=== PATIENT | male | born 1970 | race Caucasian/White ===

== ENCOUNTER 2021-05-16 10:56 | Outpatient (REF) | payer OTHER, SELFPAY ==
[2021-05-16 13:08] LABS: Hematocrit 44.2 % (42-52); Hemoglobin 14.7 g/dl (14.0-18.0); Mean Corpuscular HGB Conc 33.3 g/dl (31.0-36.0); Mean Corpuscular Hemoglobin 29.1 pg (27.0-33.0); Mean Corpuscular Volume 87.5 fL (80-98); Mean Platelet Volume 11.2 fL (9.4-12.4); Platelet Count 227 X10*3/uL (160-400); Red Blood Count 5.05 X10*6/uL (4.60-5.80); Red Cell Distribution Width 13.4 % (11.0-16.0); White Blood Count 9.8 X10*3/uL (4.8-10.8)
[2021-05-16 13:34] LABS: Alanine Aminotransferase 27 U/L (0-40); Albumin Level 4.2 g/dL (3.5-5.0); Alkaline Phosphatase 49 U/L (39-117); Anion Gap 11 (12-20); Aspartate Amino Transferase 20 U/L (5-37); Bilirubin Total 0.6 mg/dL (0.0-1.0); Blood Urea Nitrogen 17 mg/dL (9-16); Calcium 9.4 mg/dL (8.4-10.2); Carbon Dioxide 27 mmol/L (22-29); Chloride 105 mmol/L (96-108); Cholesterol 136 mg/dL; Estimated Glomerular Filt Rate 55; Glucose Fasting 139 mg/dL (60-99); HDL Cholesterol 36 mg/dL; LDL Cholesterol Calculated 62 mg/dl; Potassium 4.3 mmol/L (3.3-5.1); Sodium 139 mmol/L (135-145); Total Protein 7.2 g/dL (6.5-8.0); Triglycerides 191 mg/dL
[2021-05-16 13:59] LABS: Prostate Specific Antigen 0.73 ng/mL (<0.05-4.0)
== END 2021-05-16 10:57 | disposition home or self-care (01) ==
LOC: HO.MANLDS 10:56
PROVIDERS: PCP Internal Medicine; Visit Provider Internal Medicine
DX: Z12.5 Encounter for screening for malignant neoplasm of prostate (principal); I10 Essential (primary) hypertension
CPT/HCPCS: 36415; 80053; 80061; 84153; 85027

== ENCOUNTER 2021-08-04 10:14 | Outpatient (REF) | payer OTHER, SELFPAY ==
[2021-08-04 14:30] LABS: Estimated Average Glucose 134 mg/dL; Hemoglobin A1c % 6.3 %
[2021-08-04 14:34] LABS: Cholesterol 137 mg/dL; HDL Cholesterol 36 mg/dL; LDL Cholesterol Calculated 64 mg/dl; Triglycerides 185 mg/dL
== END 2021-08-04 10:15 | disposition home or self-care (01) ==
LOC: HO.MANLDS 10:14
PROVIDERS: PCP Internal Medicine; Visit Provider Internal Medicine
DX: E78.00 Pure hypercholesterolemia, unspecified (principal); R73.9 Hyperglycemia, unspecified
CPT/HCPCS: 36415; 80061; 83036

== ENCOUNTER 2021-12-25 11:22 | Inpatient (IN) | payer OTHER, SELFPAY ==
[2021-12-25] VITALS (7 sets, daily range): BP systolic 142–170; BP diastolic 75–103; PULSE 76–96; RESP 13–20; TEMP 36.6–37.2; O2SAT 95–98; BMI 39.5; BMI 43.7; BMI 43.4
--- NOTE | ~2021-12-25 | XR_ITS ---
EXAMINATION: XR CHEST CLINICAL INFORMATION: Chest pain COMPARISON: None TECHNIQUE: AP portable view of the chest was obtained. FINDINGS: No significant abnormality is noted involving the heart, lungs, mediastinum, bony thorax or soft tissues. Unipolar pacemaker in place. XR/XR chest 1V IMPRESSION: No acute disease.
--- NOTE | 2021-12-25 11:33 | ECG_ITS ---
Test Reason : chest pain Blood Pressure : / mmHG Vent. Rate : 081 BPM Atrial Rate : 081 BPM P-R Int : 188 ms QRS Dur : 086 ms QT Int : 362 ms P-R-T Axes : 012 030 006 degrees QTc Int : 420 ms Normal sinus rhythm Normal ECG No previous ECGs available Referred By: Generic ED Physician Electronically Signed By:SILVIA YOUNG MD
--- NOTE | 2021-12-25 12:03 | ED_ITS ---
HPI - Chest Pain General Chief Complaint: Chest Pain Stated Complaint: chest pain Time Seen by Provider: 12/25/21 12:03 Source: patient Mode of arrival: ambulatory Limitations: no limitations History of Present Illness HPI narrative: If Related Data Home Medications Medication Instructions Recorded Confirmed aspirin 81 mg tablet,delayed 1 tab PO DAILY 12/25/21 release carvedilol 6.25 mg tablet 1 tab PO BID 12/25/21 rosuvastatin 5 mg tablet 1 tab PO DAILY 12/25/21 Allergies Allergy/AdvReac Type Severity Reaction Status Date / Time No Known Allergies Allergy Verified 12/25/21 11:32 [facility] Past Medical History Medical History (Updated 12/25/21 @ 13:16 by Aldo Abel DO) Cardiac defibrillator in place Obesity Social History Social History Alcohol intake: current Alcohol intake frequency: holidays/special occasions only Smoked in Last 30 Days: No Use of substances other than those prescribed or required for medical reasons: No Advance Directives: No Advance Directives Information Provided: Yes Physical Exam Vital Signs: Vital Signs: Last Vital Signs Temp 98 F 12/25/21 11:24 Pulse 87 12/25/21 12:10 Resp 13 12/25/21 12:10 BP 170/103 H 12/25/21 12:10 Pulse Ox 96 12/25/21 12:10 BMI result Body Mass Index 39.5 MDM - Chest Pain MDM Narrative Medical decision making narrative: 51-year-old lower chest pain does have family history of heart disease in his father when father was in his 60s patient did have defibrillator placed after uneventful as a work with [employer] under reason for it patient is asymptomatic this time with STEMI chest pain was last night denies any falls or injuries since our unlikely ACS and affect he has no chest pain now will get troponins x- ray and labs as well EKG on arrival. 1313 patient that they tried to talk to Dr. Chaves with me the patient's only his feet for ACS also the patient heparin for now to medicine I consulted Medicine. 1334 I spoke with hospitalist will admit the patient to medicine service. Lab Data Result diagrams: 12/25/21 12:09 12/25/21 12:09 Labs: Lab Results 12/25/21 12/25/21 12/25/21 Range/Units 12:09 12:09 12:09 WBC 12.1 H (4.8-10.8) X10*3/uL RBC 5.17 (4.60-5.80) X10*6/uL Hgb 15.5 (14.0-18.0) g/dl Hct 45.4 (42.0-52.0) % MCV 87.8 (80.0-98.0) fL MCH 30.0 (27.0-33.0) pg MCHC 34.1 (31.0-36.0) g/dl RDW 13.3 (11.0-16.0) % Plt Count 218 (160-400) X10*3/uL MPV 10.9 (9.4-12.4) fL Immature Gran % (Auto) 0.5 H (0.0-0.4) % Neut % (Auto) 76.6 H (45-73) % Lymph % (Auto) 13.3 L (20-40) % [place] % (Auto) 7.8 (2-11) % Eos % (Auto) 1.5 (0-4) % Baso % (Auto) 0.3 (0-2) % Lymph # (Auto) 1.6 (1.2-4.9) X10*3/uL [place] # (Auto) 0.9 (0.1-1.2) X10*3/uL Eos # (Auto) 0.2 (0.0-0.4) X10*3/uL Baso # (Auto) 0.0 (0.0-0.2) X10*3/uL Abs Immat Gran (auto) 0.06 H (0.00-0.03) X10*3/uL Absolute Neuts (auto) 9.3 H (2.0-8.3) x10*3/uL Absolute Nucleated RBC 0.000 (0.0-0.012) X10*3/uL Nucleated RBC % (auto) 0.0 (0.0-0.2) /100WBC Sodium 137 (135-145) mmol/L Potassium 4.7 (3.3-5.1) mmol/L Chloride 104 (96-108) mmol/L Carbon Dioxide 24 (22-29) mmol/L Anion Gap 14 (12-20) BUN 15 (9-16) mg/dL Creatinine 1.22 (0.5-1.4) mg/dL Estim Creat Clear Calc 105.3 Estimated GFR > 60 Random Glucose 113 (60-115) mg/dL Calcium 9.2 (8.4-10.2) mg/dL Troponin I High Sens 36.8 H (<3.5-35.0) ng/L ECG Data ECG #1: Attestation: I personally reviewed and interpreted this ECG as follows: ECG interpretation date: 12/25/21 ECG interpretation time: 12:05 Prior ECG tracings: not available for review Interpretation: Rate 81 normal sinus rhythm normal intervals no signs of ischemia Scores Heart Score History: -0- slightly suspicious ECG: -0- normal Age: -1- >45 - <65 Risk factory: -1- 1 or 2 risk factors Troponin: -0- < or = normal limit Score: 2 Risk: 1.7% Critical Care Time Critical Care Time Critical Care Time: Yes Total Critical Care Time: 35 Attestation: 51-year-old male with history of a defibrillator after an episode at work here with positive troponin and chest pain I did consult with cardiology started the patient heparin drip and admitted to Medicine. Discharge Plan Discharge Clinical Impression: Chest pain, Acute non-ST elevation myocardial infarction (NSTEMI), Elevated troponin Patient Disposition: Admitted As Inpatient
[2021-12-25 12:18] LABS: MANUAL DIFF FLAG NO
[2021-12-25 12:21] LABS: Basophils Percent Auto 0.3 % (0-2); Eosinophils Absolute Auto 0.2 X10*3/uL (0.0-0.4); Eosinophils Percent Auto 1.5 % (0-4); Hematocrit 45.4 % (42.0-52.0); Hemoglobin 15.5 g/dl (14.0-18.0); Imm Gran Abs Auto 0.06 X10*3/uL (0.00-0.03); Imm Gran Pct Auto 0.5 % (0.0-0.4); Lymphocytes Absolute Auto 1.6 X10*3/uL (1.2-4.9); Lymphocytes Percent Auto 13.3 % (20-40); Mean Corpuscular HGB Conc 34.1 g/dl (31.0-36.0); Mean Corpuscular Volume 87.8 fL (80.0-98.0); Mean Platelet Volume 10.9 fL (9.4-12.4); Monocytes Absolute Auto 0.9 X10*3/uL (0.1-1.2); Monocytes Percent Auto 7.8 % (2-11); Neutrophils Absolute Auto 9.3 x10*3/uL (2.0-8.3); Neutrophils Percent Auto 76.6 % (45-73); Platelet Count 218 X10*3/uL (160-400); Red Blood Count 5.17 X10*6/uL (4.60-5.80); Red Cell Distribution Width 13.3 % (11.0-16.0); White Blood Count 12.1 X10*3/uL (4.8-10.8)
[2021-12-25 12:38] LABS: Anion Gap 14 (12-20); Blood Urea Nitrogen 15 mg/dL (9-16); Calcium 9.2 mg/dL (8.4-10.2); Carbon Dioxide 24 mmol/L (22-29); Chloride 104 mmol/L (96-108); Creatinine Clr Calc Pharmacy 105.3; Estimated Glomerular Filt Rate > 60; Glucose Random 113 mg/dL (60-115); Potassium 4.7 mmol/L (3.3-5.1); Sodium 137 mmol/L (135-145)
--- NOTE | 2021-12-25 12:40 | PC.NURSE ---
pt not given asa as he took 81 mg this am, provider to reorder dose needed
[2021-12-25 12:42] LABS: Troponin-I High Sensitivity 36.8 ng/L (<3.5-35.0)
[2021-12-25] MEDS: Aspirin 81 MG TAB.CHEW 243 MG PO (12:44)
--- NOTE | 2021-12-25 12:45 | PC.NURSE ---
pt a&ox3, vss, 20G IV placed right AC, medicated per provider order w adjusted asprin dose. no new orders at this time.
[2021-12-25] MEDS: 0.9 % Sodium Chloride 1,000 ML 999 ML IV (13:50)
--- NOTE | 2021-12-25 13:51 | PC.NURSE ---
20 G IV placed left AC, labs drawn, flds started. no new orders at this time.
--- NOTE | 2021-12-25 14:03 | PHA.MEDREC ---
Pharmacy Consult ? Medication Reconciliation Pharmacy has completed the medication reconciliation. No remarkable issues. Emma Pizarro, TreverD
[2021-12-25 14:12] LABS: COVID-19 Test Negative (Negative); IDNOW Serial# 55D5AD1C
[2021-12-25 14:12] LABS: Prothrombin Time 11.1 SEC (9.9-13.0)
[2021-12-25 14:14] LABS: Lactic Acid 0.9 mmol/L (0.5-2.0)
[2021-12-25 14:15] LABS: PTT Heparin Drip 32.7 SEC (53-77.9)
[2021-12-25 14:25] LABS: Troponin-I High Sensitivity 46.4 ng/L (<3.5-35.0)
[2021-12-25] MEDS: Heparin Sodium,Porcine/1/2NS 25,000 UNIT/250 ML IV.SOLN 21.62 UNIT IVCONT (14:25)
--- NOTE | 2021-12-25 14:28 | PC.NURSE ---
medicated per provider order.
--- NOTE | 2021-12-25 15:25 | PM.IMHP ---
History of Present Illness Date of Service: 12/25/21 Chief Complaint: chest pain a 51 years old male with PMH of AICD post syncope, morbid obesity who presents to the hospital with complaint of chest pain for the last 3 days. The patient reports that she has been having episodes of chest pain which is centralized, stabbing in nature, last 1-2 minutes not associated with any shortness of breath, sweating, radiation, nausea or vomiting. He reports that he had recent cold but no coughing. He had angiogram done 3 years ago 2019 when he had an episode of syncope that was evaluated at [facility] were the did full cardiac evaluation with no clear ischemic or electrical issues according to the patient and the ended up placing any ICD. In the emergency today his troponin was noted to be mildly elevated at 30, increased to 40 with no EKG changes. Case was discussed by ED provider with the home visit field care manager who recommended starting heparin drip admitting the patient. Review of Systems Review of Systems: No fever, chills or weakness Reporting episodes of chest pain with no associated palpitation No shortness of breath or coughing No abdominal pain, nausea or vomiting No urinary symptoms No any rash or wounds PMFSH Medical History Cardiac defibrillator in place Obesity Social History Alcohol intake: current Alcohol intake frequency: holidays/special occasions only Smoked in Last 30 Days: No Use of substances other than those prescribed or required for medical reasons: No Advance Directives: No Advance Directives Information Provided: Yes Meds Allergies Allergy/AdvReac Type Severity Reaction Status Date / Time No Known Allergies Allergy Verified 12/25/21 11:32 Active Medications: Current Medications Acetaminophen (Acetaminophen 325 Mg Tablet) 650 mg PO Q6H PRN PRN Reason: Pain, Mild (Pain Scale 1-3) Aspirin (Aspirin Enteric Coated 81 Mg Tablet.) 81 mg PO BEDTIME CHENTE Atorvastatin Calcium (Atorvastatin Calcium 40 Mg Tablet) 40 mg PO BEDTIME CHENTE Carvedilol (Carvedilol 6.25 Mg Tablet) 6.25 mg PO BID [facility]; Protocol Heparin Sodium/Sodium Chloride () 25,000 unit in 250 mls @ 0 mls/hr IVCONT .Q0M CHENTE; Protocol Last Admin: 12/25/21 14:25 Dose: 14 units/kg/hr, 21.62 mls/hr Documented by: Ondansetron HCl (Ondansetron Hcl 4 Mg/2 Ml Vial) 4 mg IVPUSH Q8H PRN PRN Reason: Nausea and Vomiting Pharmacy Consult (Consult Rx Perform Med Rec) 1 each MISCELLANE ONCE PRN PRN Reason: Consult order Sodium Chloride (0.9 % Sodium Chloride Flush 3 Ml Syringe) 3 ml IVFLUSH QSHIFT [facility] Home Medications Medication Instructions Recorded Confirmed Last Taken Type aspirin 81 mg tablet,delayed 1 tab PO BEDTIME 12/25/21 12/25/21 12/24/21 History release carvedilol 6.25 mg tablet 1 tab PO BID 12/25/21 12/25/21 12/25/21 History rosuvastatin 5 mg tablet 1 tab PO DAILY 12/25/21 12/25/21 12/25/21 History Physical Exam Vital Signs and Narrative: Vital Signs: Last Vital Signs Temp 98 F 12/25/21 11:24 Pulse 87 12/25/21 14:00 Resp 13 12/25/21 14:00 BP 144/89 H 12/25/21 14:00 Pulse Ox 96 12/25/21 14:00 BMI result Body Mass Index 43.7 Const: Other: Constitutional : Alert, oriented, not in distress, morbidly obese Neck : Normal inspection, Supple Cardiovascular : RRR, no JVP, trace bilateral lower extremity edema Respiratory : fair bilateral air entry, no crackles, wheezes or rhonchi Gastrointestinal: soft, lax, Normal bowel sounds, Non tender Skin : Warm, Dry Neurological : Alert & oriented x3, No focal deficit , CN 2-12 within normal Results Labs CBC and Chem 7: 12/25/21 12:09 12/25/21 12:09 Labs: Laboratory Results - last 24 hr 12/25/21 12/25/21 12/25/21 12:09 12:09 12:09 MCV 87.8 MCH 30.0 MCHC 34.1 RDW 13.3 Plt Count 218 MPV 10.9 Immature Gran % (Auto) 0.5 H Neut % (Auto) 76.6 H Lymph % (Auto) 13.3 L [place] % (Auto) 7.8 Eos % (Auto) 1.5 Baso % (Auto) 0.3 Lymph # (Auto) 1.6 [place] # (Auto) 0.9 Eos # (Auto) 0.2 Baso # (Auto) 0.0 Abs Immat Gran (auto) 0.06 H Absolute Neuts (auto) 9.3 H Absolute Nucleated RBC 0.000 Nucleated RBC % (auto) 0.0 PT INR aPTT Heparin Protocol Anion Gap 14 Estim Creat Clear Calc 105.3 Estimated GFR > 60 Random Glucose 113 Lactic Acid Calcium 9.2 Troponin I High Sens 36.8 H COVID-19 (JOHN) COVID-19 Clin Com 12/25/21 12/25/21 12/25/21 13:46 13:46 13:47 MCV MCH MCHC RDW Plt Count MPV Immature Gran % (Auto) Neut % (Auto) Lymph % (Auto) [place] % (Auto) Eos % (Auto) Baso % (Auto) Lymph # (Auto) [place] # (Auto) Eos # (Auto) Baso # (Auto) Abs Immat Gran (auto) Absolute Neuts (auto) Absolute Nucleated RBC Nucleated RBC % (auto) PT 11.1 INR 1.0 aPTT Heparin Protocol 32.7 L Anion Gap Estim Creat Clear Calc Estimated GFR Random Glucose Lactic Acid Calcium Troponin I High Sens 46.4 H COVID-19 (JOHN) Negative COVID-19 Clin Com See Note 12/25/21 13:47 MCV MCH MCHC RDW Plt Count MPV Immature Gran % (Auto) Neut % (Auto) Lymph % (Auto) [place] % (Auto) Eos % (Auto) Baso % (Auto) Lymph # (Auto) [place] # (Auto) Eos # (Auto) Baso # (Auto) Abs Immat Gran (auto) Absolute Neuts (auto) Absolute Nucleated RBC Nucleated RBC % (auto) PT INR aPTT Heparin Protocol Anion Gap Estim Creat Clear Calc Estimated GFR Random Glucose Lactic Acid 0.9 Calcium Troponin I High Sens COVID-19 (JOHN) COVID-19 Clin Com Imaging Radiologist's Impressions: Impressions Chest X-Ray 12/25/21 12:15 IMPRESSION: No acute disease. Assessment and Plan (1) Chest pain: Status: Acute Plan a 51 years old male with PMH of AICD post syncope, morbid obesity who presents to the hospital with complaint of chest pain for the last 3 days. chest pain Troponin mildly increased from 35-46 EKG negative for any acute ST or T-wave changes to suggest ACS Started baby aspirin and atorvastatin Started on heparin drip per Cardiology recommendations To get cardiology evaluation the morning Morbid obesity Advised to lose weight DVT PPX Lovenox Quality Stroke Does the patient have a stroke diagnosis?: No VTE Prior VTE?: No VTE Risk Level:: Medical - moderate - high VTE Device Contraindication: Treatment Not Indicated VTE Drug Contraindication: N/A - Med Ordered
--- NOTE | 2021-12-25 16:46 | PC.NURSE ---
called to give report to floor, when a nurse is assigned and they will call us back
[2021-12-25 16:47] LABS: Ethanol < 10 mg/dL
[2021-12-25 16:51] LABS: Alanine Aminotransferase 34 U/L (0-40); Albumin Level 4.1 g/dL (3.5-5.0); Alkaline Phosphatase 53 U/L (39-117); Aspartate Amino Transferase 26 U/L (5-37); Bilirubin Direct 0.2 mg/dL (0.0-0.5); Bilirubin Total 0.6 mg/dL (0.0-1.0); Lipase 70 U/L (8-78); Total Protein 7.3 g/dL (6.5-8.0)
--- NOTE | 2021-12-25 19:18 | MHC.CM.PN ---
ROLF 12/25. Declines HCP. Vax x2 moderna. No booster. Covid 19 in October.Employed as [employer]/[place].Lives with and 4 children. Has AICD and uses CPAP at night. Has no services. D/C plan: home without services. Family will transport. CM to follow for d/c needs.
[2021-12-25] MEDS: Aspirin Enteric Coated 81 MG TABLET.DR PO (20:08)
[2021-12-25] MEDS: carvediloL 6.25 MG TABLET PO (20:08)
[2021-12-25] MEDS: 0.9 % Sodium Chloride Flush 3 ML SYRINGE IVFLUSH (20:08)
[2021-12-25 20:45] LABS: PTT Heparin Drip 76.2 SEC (53-77.9)
--- NOTE | 2021-12-26 | CA_ITS ---
Acquisition Time: 2021-12-26 10:24:59 Total Exercise Time: 00:02:28 Test Indications: Chest Pain Medications: Protocol: NIDHI Max HR: 151 BPM 89% of Pred: 168 BPM Max BP: 180/100 mmHG Max Work Load: 4.6 METS ETT pisitve for ischemia with limiting chest pain. Transfer to [facility] for cardiac catheterization Referred By: Silvia Chaves Overread By: SILVIA CHAVES MD
[2021-12-26] MEDS: Heparin Sodium,Porcine/1/2NS 25,000 UNIT/250 ML IV.SOLN 21.62 UNIT IVCONT (02:25)
[2021-12-26 03:17] VITALS: BP 123/65; PULSE 78; RESP 16; TEMP 36.7; O2SAT 95
[2021-12-26 03:44] LABS: Hematocrit 40.7 % (42.0-52.0); Mean Corpuscular HGB Conc 34.4 g/dl (31.0-36.0); Mean Corpuscular Hemoglobin 30.1 pg (27.0-33.0); Mean Corpuscular Volume 87.5 fL (80.0-98.0); Platelet Count 187 X10*3/uL (160-400); Red Blood Count 4.65 X10*6/uL (4.60-5.80); Red Cell Distribution Width 13.5 % (11.0-16.0); White Blood Count 12.1 X10*3/uL (4.8-10.8)
[2021-12-26 03:50] LABS: Prothrombin Time 11.9 SEC (9.9-13.0)
[2021-12-26 03:53] LABS: PTT Heparin Drip 83.5 SEC (53-77.9)
[2021-12-26 04:03] LABS: Anion Gap 13 (12-20); Blood Urea Nitrogen 18 mg/dL (9-16); Calcium 8.4 mg/dL (8.4-10.2); Carbon Dioxide 22 mmol/L (22-29); Chloride 107 mmol/L (96-108); Creatinine Clr Calc Pharmacy 103.2; Estimated Glomerular Filt Rate 57; Glucose Random 127 mg/dL (60-115); Potassium 4.1 mmol/L (3.3-5.1); Sodium 138 mmol/L (135-145)
[2021-12-26 07:37] VITALS: BP 125/67; PULSE 79; RESP 17; TEMP 36.4; O2SAT 96
[2021-12-26] MEDS: carvediloL 6.25 MG TABLET PO (09:23)
--- NOTE | 2021-12-26 09:59 | PM.CNCAR ---
History of Present Illness History of Present Illness Date of Service: 12/26/21 Requesting physician: Brian Nova Consult reason: chest pain Chief complaint: Chest pain Narrative: Thank you for consulting us on Dav in cardiology consultation for chest discomfort. 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 Patient says recently is having some increased stress. Wednesday and Wednesday started noticing retrosternal chest pressure with minimal activity. This got him concerned. Symptoms would last for few minutes and then subside. As symptoms were recurring he got concerned and anxious and decided come to the emergency room yesterday around 08 05. He did not have any symptoms yesterday. His initial troponin was minimally elevated and subsequent troponin was flat without any clear rise and fall consistent with acute coronary syndrome. EKG was nonischemic. He was admitted because of his recent onset symptoms for possible acute coronary syndrome. He currently feels better. His blood pressure is elevated although he says a blood pressure is elevated in healthcare settings. He is currently on carvedilol for possible mild cardiomyopathy as well as hypertension. He is also on rosuvastatin. Uses CPAP regularly. He says since his episode of sudden cardiac that he has been more anxious especially when he is driving on highway. Review of Systems Constitutional: Constitutional: Reports no additional constitutional complaints Eyes: Eyes: Reports no additional eye complaints Cardiovascular: Cardiovascular: Reports chest pain with activity, Denies leg edema, Denies lightheadedness, Denies Loss of Consciousness, Denies palpitations and Reports dyspnea on exertion Respiratory: Respiratory: Reports no additional respiratory complaints and Reports dyspnea on exertion Gastrointestinal: Gastrointestinal: Reports no additional gastrointestinal complaints Genitourinary: Genitourinary: Reports no additional male genitourinary complaints Musculoskeletal: Musculoskeletal: Reports no additional musculoskeletal complaints Integumentary/Breasts: Skin/Breast: Reports system reviewed and no additional complaints, except as docu Neurologic: Reports system reviewed and no additional complaints, except as documented Psychiatric: Psychiatric: Reports no additional psychiatric complaints Endocrine: Endocrine: Reports no additional endocrine complaints and Denies palpitations Allergic/Immunologic: Allergic/Immunologic: Reports no additional allergic/immunologic complaints PMFSH Past Medical History Medical History Cardiac defibrillator in place Obesity Social History Social History Household Members: Spouse and Family Housing: House Do you presently have visiting nurse or other home services: No Alcohol intake: current Alcohol intake frequency: holidays/special occasions only Patient Tobacco Use Status: Never used Tobacco Smoked in Last 30 Days: No Use of substances other than those prescribed or required for medical reasons: No Currently Displaying Signs/Symptoms of Drug Intoxication Withdrawal: No Any prior treatment program specific to substance use: No Have you been hit, kicked, punched, or otherwise hurt by someone within the past year? If so, by whom?: No Do you feel safe in your current relationship?: Yes Is there a partner from a previous relationship who is making you feel unsafe now?: No Are you made to feel afraid or neglected: No Advance Directives: No Advance Directives Information Provided: Yes Do you have thoughts of harming others: None Do you have a plan to hurt others: No Plan Recently lost weight without trying: No Eating poorly because of decreased appetite: No Nutrition Risks: No Nutritional Risk Poor oral hygiene: No Current occupational status: employed Meds Allergies Allergy/AdvReac Type Severity Reaction Status Date / Time No Known Allergies Allergy Verified 12/25/21 11:32 Active Medications: Current Medications Acetaminophen (Acetaminophen 325 Mg Tablet) 650 mg PO Q6H PRN PRN Reason: Pain, Mild (Pain Scale 1-3) Aspirin (Aspirin Enteric Coated 81 Mg Tablet.) 81 mg PO BEDTIME [facility] Last Admin: 12/25/21 20:08 Dose: 81 mg Documented by: Atorvastatin Calcium (Atorvastatin Calcium 40 Mg Tablet) 40 mg PO BEDTIME [facility] Last Admin: 12/25/21 20:10 Dose: Not Given Documented by: Carvedilol (Carvedilol 6.25 Mg Tablet) 6.25 mg PO BID [facility]; Protocol Last Admin: 12/26/21 09:23 Dose: 6.25 mg Documented by: Heparin Sodium (Porcine) (Heparin Sodium,Porcine 5,000 Unit/Ml Vial) 6,100 unit 40 unit/kg (6100 unit) IVPUSH PROTOCOL BOLUS PRN PRN Reason: 40 unit/kg - Heparin Protocol Heparin Sodium (Porcine) (Heparin Sodium,Porcine 5,000 Unit/Ml Vial) 10,000 unit IVPUSH PROTOCOL BOLUS PRN PRN Reason: 80 unit/kg - Heparin Protocol Heparin Sodium/Sodium Chloride () 25,000 unit in 250 mls @ 0 mls/hr IVCONT .Q0M [facility]; Protocol Last Titration: 12/26/21 04:05 Dose: 12 units/kg/hr, 18.53 mls/hr Documented by: Ondansetron HCl (Ondansetron Hcl 4 Mg/2 Ml Vial) 4 mg IVPUSH Q8H PRN PRN Reason: Nausea and Vomiting Pharmacy Consult (Consult Rx Perform Med Rec) 1 each MISCELLANE ONCE PRN PRN Reason: Consult order Sodium Chloride (0.9 % Sodium Chloride Flush 3 Ml Syringe) [facility] Last Admin: 12/26/21 09:52 Dose: Not Given Documented by: Home Medications Medication Instructions Recorded Confirmed Last Taken Type aspirin 81 mg tablet,delayed 1 tab PO BEDTIME 12/25/21 12/25/21 12/24/21 History release carvedilol 6.25 mg tablet 1 tab PO BID 12/25/21 12/25/21 12/25/21 History rosuvastatin 5 mg tablet 1 tab PO DAILY 12/25/21 12/25/21 12/25/21 History Physical Exam Vital Signs: Vital Signs: Last Vital Signs Temp 97.6 F 12/26/21 07:37 Pulse 79 12/26/21 07:37 Resp 17 12/26/21 07:37 BP 125/67 12/26/21 07:37 Pulse Ox 96 12/26/21 07:37 BMI result Body Mass Index 43.4 Const: General: cooperative, comfortable, no acute distress, alert and awake Nutritional Appearance: obese morbidly obese Orientation/consciousness: patient oriented x3 Limitations: no limitations HEENT: Head: Yes normocephalic and Yes atraumatic Neck: Neck: Yes trachea midline, Yes supple and Yes no JVD Chest: Chest palpation & inspection: normal inspection of the chest Resp: Effort & Inspection: normal respiratory effort Auscultation: clear to auscultation bilaterally Cardio: Jugular venous distension: no JVD Rate: regular rate Rhythm: regular rhythm Heart sounds: S1 normal heart sound present, S2 normal heart sound present, no click, no gallops, no murmurs and no rubs GI: Inspection: Yes obesity Auscultation: normal bowel sounds Skin: General skin exam: no rashes or lesions noted Neuro: General: patient oriented x3 and no focal motor deficits Extrem: General: Yes no clubbing, cyanosis or edema Psych: Appearance: grossly normal Objective Labs and Meds Result diagrams: 12/26/21 03:30 12/26/21 03:31 Lab results: Laboratory Results - last 24 hr 12/25/21 12/25/21 12/25/21 12:09 12:09 12:09 WBC 12.1 H RBC 5.17 Hgb 15.5 Hct 45.4 MCV 87.8 MCH 30.0 MCHC 34.1 RDW 13.3 Plt Count 218 MPV 10.9 Immature Gran % (Auto) 0.5 H Neut % (Auto) 76.6 H Lymph % (Auto) 13.3 L [place] % (Auto) 7.8 Eos % (Auto) 1.5 Baso % (Auto) 0.3 Lymph # (Auto) 1.6 [place] # (Auto) 0.9 Eos # (Auto) 0.2 Baso # (Auto) 0.0 Abs Immat Gran (auto) 0.06 H Absolute Neuts (auto) 9.3 H Absolute Nucleated RBC 0.000 Nucleated RBC % (auto) 0.0 PT INR aPTT Heparin Protocol Sodium 137 Potassium 4.7 Chloride 104 Carbon Dioxide 24 Anion Gap 14 BUN 15 Creatinine 1.22 Estim Creat Clear Calc 105.3 Estimated GFR > 60 Random Glucose 113 Lactic Acid Calcium 9.2 Total Bilirubin Direct Bilirubin AST ALT Alkaline Phosphatase Troponin I High Sens 36.8 H Total Protein Albumin Lipase Ethyl Alcohol COVID-19 (JOHN) COVID-19 Clin Com 12/25/21 12/25/21 12/25/21 13:46 13:46 13:47 WBC RBC Hgb Hct MCV MCH MCHC RDW Plt Count MPV Immature Gran % (Auto) Neut % (Auto) Lymph % (Auto) [place] % (Auto) Eos % (Auto) Baso % (Auto) Lymph # (Auto) [place] # (Auto) Eos # (Auto) Baso # (Auto) Abs Immat Gran (auto) Absolute Neuts (auto) Absolute Nucleated RBC Nucleated RBC % (auto) PT 11.1 INR 1.0 aPTT Heparin Protocol 32.7 L Sodium Potassium Chloride Carbon Dioxide Anion Gap BUN Creatinine Estim Creat Clear Calc Estimated GFR Random Glucose Lactic Acid Calcium Total Bilirubin Direct Bilirubin AST ALT Alkaline Phosphatase Troponin I High Sens 46.4 H Total Protein Albumin Lipase Ethyl Alcohol COVID-19 (JOHN) Negative COVID-19 [employer]agents See Note 12/25/21 12/25/21 12/25/21 13:47 16:26 16:26 WBC RBC Hgb Hct MCV MCH MCHC RDW Plt Count MPV Immature Gran % (Auto) Neut % (Auto) Lymph % (Auto) [place] % (Auto) Eos % (Auto) Baso % (Auto) Lymph # (Auto) [place] # (Auto) Eos # (Auto) Baso # (Auto) Abs Immat Gran (auto) Absolute Neuts (auto) Absolute Nucleated RBC Nucleated RBC % (auto) PT INR aPTT Heparin Protocol Sodium Potassium Chloride Carbon Dioxide Anion Gap BUN Creatinine Estim Creat Clear Calc Estimated GFR Random Glucose Lactic Acid 0.9 Calcium Total Bilirubin 0.6 Direct Bilirubin 0.2 AST 26 ALT 34 Alkaline Phosphatase 53 Troponin I High Sens Total Protein 7.3 Albumin 4.1 Lipase 70 Ethyl Alcohol < 10 COVID-19 (JOHN) [employer] 12/25/21 12/26/21 12/26/21 20:19 03:30 03:30 WBC 12.1 H RBC 4.65 Hgb 14.0 Hct 40.7 L MCV 87.5 MCH 30.1 MCHC 34.4 RDW 13.5 Plt Count 187 MPV 11.0 Immature Gran % (Auto) Neut % (Auto) Lymph % (Auto) [place] % (Auto) Eos % (Auto) Baso % (Auto) Lymph # (Auto) [place] # (Auto) Eos # (Auto) Baso # (Auto) Abs Immat Gran (auto) Absolute Neuts (auto) Absolute Nucleated RBC 0.000 Nucleated RBC % (auto) 0.0 PT 11.9 INR 1.0 aPTT Heparin Protocol 76.2 D Sodium Potassium Chloride Carbon Dioxide Anion Gap BUN Creatinine Estim Creat Clear Calc Estimated GFR Random Glucose Lactic Acid Calcium Total Bilirubin Direct Bilirubin AST ALT Alkaline Phosphatase Troponin I High Sens Total Protein Albumin Lipase Ethyl Alcohol COVID-19 (JOHN) [employer] 12/26/21 12/26/21 03:31 03:31 WBC RBC Hgb Hct MCV MCH MCHC RDW Plt Count MPV Immature Gran % (Auto) Neut % (Auto) Lymph % (Auto) [place] % (Auto) Eos % (Auto) Baso % (Auto) Lymph # (Auto) [place] # (Auto) Eos # (Auto) Baso # (Auto) Abs Immat Gran (auto) Absolute Neuts (auto) Absolute Nucleated RBC Nucleated RBC % (auto) PT INR aPTT Heparin Protocol 83.5 H Sodium 138 Potassium 4.1 Chloride 107 Carbon Dioxide 22 Anion Gap 13 BUN 18 H Creatinine 1.31 Estim Creat Clear Calc 103.2 Estimated GFR 57 Random Glucose 127 H Lactic Acid Calcium 8.4 D Total Bilirubin Direct Bilirubin AST ALT Alkaline Phosphatase Troponin I High Sens Total Protein Albumin Lipase Ethyl Alcohol COVID-19 (JOHN) COVID-19 Clin Com Imaging Radiologist's impression: Impressions Chest X-Ray 12/25/21 12:15 IMPRESSION: No acute disease. Assessment and Plan (1) Chest pain: Status: Acute Chest pain with atypical features but some concerning features of exertional chest pain recent onset with multiple risk factors. Minimal troponin elevation without rise and fall suggestive of acute myocardial infarction. Most likely troponin elevation from his prior mild cardiomyopathy process. He does have prior history of sudden cardiac that and at that time at a cardiac catheterization which I do not have the results of but was nonobstructive coronary disease. Would suggest him to undergo stress test. If stress test is negative he can be safely discharged home and follow up with his own blood coordinator. This was discussed with him details. If stress test is abnormal, will need cardiac catheterization. Continue carvedilol therapy. Continue CPAP therapy. Continue his usual follow-up for his defibrillator with his blood coordinator at [facility]. Thank you for allowing us to partake in his care Procedures Date of Service Date of Service: 12/26/21
[2021-12-26 10:57] LABS: PTT Heparin Drip 82.5 SEC (53-77.9)
--- NOTE | 2021-12-26 11:11 | PM.EVENT ---
Event Note Date of Service: 12/26/21 Event Note: Patient underwent treadmill stress test which at low workload with exaggerated heart rate response was positive for limiting angina for which patient required sublingual nitroglycerin as well as hypertensive response with EKG positive for ischemia. Discussed with patient about need for cardiac catheterization. We discussed the risks, benefits, alternatives to procedure. Will arrange for transfer to [facility]. He is agreeable. Please convert him to inpatient with diagnosis of unstable angina
[2021-12-26] MEDS: Heparin Sodium,Porcine/1/2NS 25,000 UNIT/250 ML IV.SOLN 15.44 UNIT IVCONT ×2 (11:18→16:40)
[2021-12-26 11:22] VITALS: BP 114/58; PULSE 92; RESP 17; TEMP 37.1; O2SAT 92
--- NOTE | 2021-12-26 12:10 | PM.DS ---
DS: Providers Provider Date of Service: 12/26/21 Date of admission: 12/25/21 15:30 Primary care physician: Carlitos Benz MD Consults: 12/25/21 15:15 Consult to Cardiology Routine Consulting Provider: Chava Chaves Reason for consultation: ACS rule out DS: Diagnosis Discharge Diagnosis (1) Chest pain: Status: Acute (2) Acute non-ST elevation myocardial infarction (NSTEMI): Status: Acute (3) Elevated troponin: Status: Acute DS: Summary Hospital Course Hospital Course: Admission note HPI ?a 51 years old male with PMH of AICD post syncope, morbid obesity who presents to the hospital with complaint of chest pain for the last 3 days.? The patient reports that she has been having episodes of chest pain which is centralized, stabbing in nature, last 1-2 minutes not associated with any shortness of breath, sweating, radiation, nausea or vomiting.? He reports that he had recent cold but no coughing.? He had angiogram done 3 years ago 2019 when he had an episode of syncope that was evaluated at [facility] were the did full cardiac evaluation with no clear ischemic or electrical issues according to the patient and the ended up placing any ICD.? In the emergency today his troponin was noted to be mildly elevated at 30, increased to 40 with no EKG changes.? Case was discussed by ED provider with the concrete rubber who recommended starting heparin drip admitting the patient. Hospital course The patient was admitted to the hospital for evaluation of chest pain which was treated as unstable angina with aspirin, statin and heparin drip. The patient had no recurrence of chest pain overnight as his EKG showed no acute ST or T-wave changes suggestive of ACS. The patient underwent treadmill stress testing which was positive for anginal pain diet improved with sublingual nitrate with reported EKG changes positive for ischemia and hypertensive response. Plan to transfer to [facility] for angiography as a case of unstable angina. Time Spent with Patient Time attestation: Total time spent providing and/or coordinating discharge services: Discharge coordination time: Greater than 30 minutes Quality: Safe Use of Opioids Does Pt have an Active Cancer Diagnosis on the Problem List?: No Quality: Stroke Does the patient have a stroke diagnosis?: No Physical Exam Vital Signs: Vital Signs: Last Vital Signs Temp 98.7 F 12/26/21 11:22 Pulse 92 04/22/22 11:22 Resp 17 12/26/21 11:22 BP 114/58 L 12/26/21 11:22 Pulse Ox 92 12/26/21 11:22 BMI result Body Mass Index 43.4 Const: Other: Constitutional : Alert, oriented, not in distress, morbidly obese Neck : Normal inspection, Supple Cardiovascular : RRR, no JVP, trace bilateral lower extremity edema Respiratory : fair bilateral air entry, no crackles, wheezes or rhonchi Gastrointestinal: soft, lax, Normal bowel sounds, Non tender Skin : Warm, Dry Neurological : Alert & oriented x3, No focal deficit , CN 2-12 within normal DS: Data Data Completed and Pending Labs on day of discharge: Laboratory Results - last 24 hr 12/25/21 12/25/21 12/25/21 12:09 12:09 12:09 WBC 12.1 H RBC 5.17 Hgb 15.5 Hct 45.4 MCV 87.8 MCH 30.0 MCHC 34.1 RDW 13.3 Plt Count 218 MPV 10.9 Immature Gran % (Auto) 0.5 H Neut % (Auto) 76.6 H Lymph % (Auto) 13.3 L [place] % (Auto) 7.8 Eos % (Auto) 1.5 Baso % (Auto) 0.3 Lymph # (Auto) 1.6 [place] # (Auto) 0.9 Eos # (Auto) 0.2 Baso # (Auto) 0.0 Abs Immat Gran (auto) 0.06 H Absolute Neuts (auto) 9.3 H Absolute Nucleated RBC 0.000 Nucleated RBC % (auto) 0.0 PT INR aPTT Heparin Protocol Sodium 137 Potassium 4.7 Chloride 104 Carbon Dioxide 24 Anion Gap 14 BUN 15 Creatinine 1.22 Estim Creat Clear Calc 105.3 Estimated GFR > 60 Random Glucose 113 Lactic Acid Calcium 9.2 Total Bilirubin Direct Bilirubin AST ALT Alkaline Phosphatase Troponin I High Sens 36.8 H Total Protein Albumin Lipase Ethyl Alcohol COVID-19 (JOHN) COVID-19 Clin Com 12/25/21 12/25/21 12/25/21 13:46 13:46 13:47 WBC RBC Hgb Hct MCV MCH MCHC RDW Plt Count MPV Immature Gran % (Auto) Neut % (Auto) Lymph % (Auto) [place] % (Auto) Eos % (Auto) Baso % (Auto) Lymph # (Auto) [place] # (Auto) Eos # (Auto) Baso # (Auto) Abs Immat Gran (auto) Absolute Neuts (auto) Absolute Nucleated RBC Nucleated RBC % (auto) PT 11.1 INR 1.0 aPTT Heparin Protocol 32.7 L Sodium Potassium Chloride Carbon Dioxide Anion Gap BUN Creatinine Estim Creat Clear Calc Estimated GFR Random Glucose Lactic Acid Calcium Total Bilirubin Direct Bilirubin AST ALT Alkaline Phosphatase Troponin I High Sens 46.4 H Total Protein Albumin Lipase Ethyl Alcohol COVID-19 (JOHN) Negative COVID-19 Clin Com See Note 12/25/21 12/25/21 12/25/21 13:47 16:26 16:26 WBC RBC Hgb Hct MCV MCH MCHC RDW Plt Count MPV Immature Gran % (Auto) Neut % (Auto) Lymph % (Auto) [place] % (Auto) Eos % (Auto) Baso % (Auto) Lymph # (Auto) [place] # (Auto) Eos # (Auto) Baso # (Auto) Abs Immat Gran (auto) Absolute Neuts (auto) Absolute Nucleated RBC Nucleated RBC % (auto) PT INR aPTT Heparin Protocol Sodium Potassium Chloride Carbon Dioxide Anion Gap BUN Creatinine Estim Creat Clear Calc Estimated GFR Random Glucose Lactic Acid 0.9 Calcium Total Bilirubin 0.6 Direct Bilirubin 0.2 AST 26 ALT 34 Alkaline Phosphatase 53 Troponin I High Sens Total Protein 7.3 Albumin 4.1 Lipase 70 Ethyl Alcohol < 10 COVID-19 (JOHN) COVID-19 [employer] Com 12/25/21 12/26/21 12/26/21 20:19 03:30 03:30 WBC 12.1 H RBC 4.65 Hgb 14.0 Hct 40.7 L MCV 87.5 MCH 30.1 MCHC 34.4 RDW 13.5 Plt Count 187 MPV 11.0 Immature Gran % (Auto) Neut % (Auto) Lymph % (Auto) [place] % (Auto) Eos % (Auto) Baso % (Auto) Lymph # (Auto) [place] # (Auto) Eos # (Auto) Baso # (Auto) Abs Immat Gran (auto) Absolute Neuts (auto) Absolute Nucleated RBC 0.000 Nucleated RBC % (auto) 0.0 PT 11.9 INR 1.0 aPTT Heparin Protocol 76.2 D Sodium Potassium Chloride Carbon Dioxide Anion Gap BUN Creatinine Estim Creat Clear Calc Estimated GFR Random Glucose Lactic Acid Calcium Total Bilirubin Direct Bilirubin AST ALT Alkaline Phosphatase Troponin I High Sens Total Protein Albumin Lipase Ethyl Alcohol COVID-19 (JOHN) COVID-19 Clin Com 12/26/21 12/26/21 12/26/21 03:31 03:31 10:06 WBC RBC Hgb Hct MCV MCH MCHC RDW Plt Count MPV Immature Gran % (Auto) Neut % (Auto) Lymph % (Auto) [place] % (Auto) Eos % (Auto) Baso % (Auto) Lymph # (Auto) [place] # (Auto) Eos # (Auto) Baso # (Auto) Abs Immat Gran (auto) Absolute Neuts (auto) Absolute Nucleated RBC Nucleated RBC % (auto) PT INR aPTT Heparin Protocol 83.5 H 82.5 H Sodium 138 Potassium 4.1 Chloride 107 Carbon Dioxide 22 Anion Gap 13 BUN 18 H Creatinine 1.31 Estim Creat Clear Calc 103.2 Estimated GFR 57 Random Glucose 127 H Lactic Acid Calcium 8.4 D Total Bilirubin Direct Bilirubin AST ALT Alkaline Phosphatase Troponin I High Sens Total Protein Albumin Lipase Ethyl Alcohol COVID-19 (JOHN) COVID-19 Clin Com Discharge Plan Discharge Patient Disposition: Xfer Acute [facility] Discharge Diagnosis: NSTEMI Referrals: Carlitos Benz MD [Primary Care Provider] - 1 Week Discharge Medications: New heparin(porcine) in 0.45% NaCl 25,000 unit/250 mL Parenteral Solution 25,000 unit continuous IV infusion .Q0M 1 Days 0RF Continued carvedilol 6.25 mg tablet 1 tab PO BID 0RF aspirin 81 mg tablet,delayed release (DR/EC) 1 tab PO BEDTIME 0RF rosuvastatin 5 mg tablet 1 tab PO DAILY 0RF Discharge Orders: Discharge Order (Routine); Ordered 12/26/21 Ordered By: Brian Nova Activity on Discharge: As tolerated Stand Alone Forms: Patient Portal Discharge page Care Plan Goals: Read below Health Concerns: Read below Plan of Treatment: Read below Assessment: you have presented to the hospital with a complaint of chest pain. Your heart enzymes were mildly elevated with no evidence of heart attack on EKG. You were monitored in the hospital and treated with IV heparin drip as a stress test was done By Cardiology raising the suspicion of possible underlying heart attack. You will be transferred to [facility] for cardiac angiography for further evaluation. Discharge Date/Time: 12/26/21 16:46
[2021-12-26 15:21] VITALS: BP 109/65; PULSE 75; RESP 20; TEMP 37.2; O2SAT 95
== END 2021-12-26 16:46 | disposition short-term general hospital (02) | DRG 190 ==
LOC: HO.ED 15:51 → HO.EDOVER 16:15 → HO.IMC 16:36
PROVIDERS: Admitting Provider Student in an Organized Health Care Education/Training Program; Emergency Provider Student in an Organized Health Care Education/Training Program; PCP Internal Medicine; Visit Provider Student in an Organized Health Care Education/Training Program
DX: I21.4 Non-ST elevation (NSTEMI) myocardial infarction (principal); E66.01 Morbid (severe) obesity due to excess calories; Z20.822 Contact with and (suspected) exposure to COVID-19; Z95.810 Presence of automatic (implantable) cardiac defibrillator; Z68.41 Body mass index [BMI] 40.0-44.9, adult; Z79.82 Long term (current) use of aspirin; Z79.899 Other long term (current) drug therapy
CPT/HCPCS: 36415; 71045; 80048; 80076; 82077; 83605; 83690; 84484; 85025; 85027; 85610; 85730; 87635; 93005; 93017; 96365; 96366; 99285; 99291

== ENCOUNTER 2022-03-13 15:38 | Outpatient (REF) | payer OTHER, SELFPAY ==
[2022-02-06 13:06] VITALS: BP 128/74; BP 144/72
[2022-03-13 17:19] LABS: Alanine Aminotransferase 22 U/L (0-40); Albumin Level 4.2 g/dL (3.5-5.0); Alkaline Phosphatase 48 U/L (39-117); Anion Gap 11 (12-20); Aspartate Amino Transferase 21 U/L (5-37); Bilirubin Total 0.5 mg/dL (0.0-1.0); Blood Urea Nitrogen 20 mg/dL (9-16); Calcium 9.2 mg/dL (8.4-10.2); Carbon Dioxide 26 mmol/L (22-29); Chloride 106 mmol/L (96-108); Estimated Glomerular Filt Rate 58; Glucose Random 103 mg/dL (60-115); Potassium 4.3 mmol/L (3.3-5.1); Sodium 139 mmol/L (135-145); Total Protein 7.1 g/dL (6.5-8.0)
[2022-03-13 17:25] LABS: B Type Natriuretic Peptide 143 pg/mL (<100)
== END 2022-03-13 15:39 | disposition home or self-care (01) ==
LOC: HO.LAB 15:38
PROVIDERS: PCP Internal Medicine; Visit Provider Internal Medicine
DX: I50.9 Heart failure, unspecified (principal)
CPT/HCPCS: 36415; 80053; 83880

== ENCOUNTER → 2022-07-03 10:20 | Outpatient (BNVA) | payer OTHER, SELFPAY ==
[2022-05-27 12:27] VITALS: BP 104/66; BP 98/60; BMI 38.9
== END ==
PROVIDERS: PCP Internal Medicine; Visit Provider Internal Medicine
DX: Z02.79 Encounter for issue of other medical certificate (principal)
CPT/HCPCS: 99213

== ENCOUNTER 2023-07-05 08:31 | Outpatient (REF) | payer OTHER, SELFPAY ==
[2022-05-27 12:27] VITALS: BP 104/66; BP 98/60; BMI 38.9
[2023-07-05 13:14] LABS: MANUAL DIFF FLAG NO
[2023-07-05 13:18] LABS: Basophils Absolute Auto 0.1 X10*3/uL (0.0-0.2); Basophils Percent Auto 0.5 % (0-2); Eosinophils Absolute Auto 0.4 X10*3/uL (0.0-0.4); Hematocrit 44.6 % (42.0-52.0); Hemoglobin 15.1 g/dl (14.0-18.0); Imm Gran Abs Auto 0.05 X10*3/uL (0.00-0.03); Imm Gran Pct Auto 0.5 % (0.0-0.4); Lymphocytes Absolute Auto 1.5 X10*3/uL (1.2-4.9); Lymphocytes Percent Auto 15.3 % (20-40); Mean Corpuscular HGB Conc 33.9 g/dl (31.0-36.0); Mean Corpuscular Hemoglobin 30.7 pg (27.0-33.0); Mean Corpuscular Volume 90.7 fL (80.0-98.0); Mean Platelet Volume 11.5 fL (9.4-12.4); Monocytes Percent Auto 9.9 % (2-11); Neutrophils Percent Auto 69.8 % (45-73); Platelet Count 215 X10*3/uL (160-400); Red Blood Count 4.92 X10*6/uL (4.60-5.80); Red Cell Distribution Width 13.4 % (11.0-16.0); White Blood Count 10.1 X10*3/uL (4.8-10.8)
[2023-07-05 13:32] LABS: Estimated Average Glucose 120 mg/dL; Hemoglobin A1c % 5.8 % (<6.0)
[2023-07-05 13:45] LABS: Alanine Aminotransferase 25 U/L (0-40); Albumin Level 4.1 g/dL (3.5-5.0); Alkaline Phosphatase 36 U/L (39-117); Anion Gap 16 (12-20); Aspartate Amino Transferase 23 U/L (5-37); Bilirubin Total 0.5 mg/dL (0.0-1.0); Blood Urea Nitrogen 19 mg/dL (9-16); Calcium 8.9 mg/dL (8.4-10.2); Carbon Dioxide 22 mmol/L (22-29); Chloride 106 mmol/L (96-108); Cholesterol 120 mg/dL (<200); Estimated Glomerular Filt Rate 55; Glucose Random 108 mg/dL (60-115); HDL Cholesterol 35 mg/dL (>40); LDL Cholesterol Calculated 47 mg/dL (<100); Sodium 140 mmol/L (135-145); Total Protein 7.3 g/dL (6.5-8.0); Triglycerides 193 mg/dL (<150)
[2023-07-05 13:58] LABS: Prostate Specific Antigen 0.72 ng/mL (<0.05-4.0)
== END 2023-07-05 08:32 | disposition home or self-care (01) ==
LOC: HO.MANLDS 08:31
PROVIDERS: Visit Provider Internal Medicine
DX: Z12.5 Encounter for screening for malignant neoplasm of prostate (principal); E11.9 Type 2 diabetes mellitus without complications; E78.00 Pure hypercholesterolemia, unspecified; N18.9 Chronic kidney disease, unspecified
CPT/HCPCS: 36415; 80053; 80061; 83036; 84153; 85025

== ENCOUNTER 2024-10-30 09:24 | Outpatient (REF) | payer OTHER, SELFPAY ==
[2022-05-27 12:27] VITALS: BP 104/66; BP 98/60; BMI 38.9
--- OUTSIDE RECORDS SUMMARY | 2024-10-30 10:12 | XMS_ITS | Data Portability ---
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) MDM MODERATE MUST MEET 2 OUT OF 3 ELEMENTS: PROBLEMS, DATA OR RISK ELEMENT 1: PROBLEMS ADDRESSED 1 OR MORE CHRONIC ILLNESS WITH EXACERBATION OR 2 OR MORE STABLE CHRONIC ILLNESSES OR 1 UNDIAGNOSED NEW PROBLEM OR 1 ACUTE ILLNESS W/SYMPTOMS OR 1 ACUTE COMPLICATED INJURY ELEMENT 2: DATA MUST MEET 1 OF 3 CATEGORIES CATEGORY 1: REVIEW OF PRIOR EXTERNAL NOTES, REVIEW OF RESULTS, ORDERING OF EACH TEST, ASSESSMENT REQUIRING INDEPENDENT HISTORIAN OR CATEGORY 2: INDEPENDENT INTERPRETATION OF TESTS BY ANOTHER PHYSICIAN OR SPECIALIST OR CATEGORY 3: DISCUSSION OF MGT OR TEST INTERPRETATION W/EXTERNAL PHYSICIAN OR SPECIALIST ELEMENT 3: RISK RISK OF COMPLICATIONS AND/OR MORBIDITY OR MORTALITY OF PATIENT MANAGEMENT PROVIDER MUST THOROUGHLY DOCUMENT EACH ELEMENT THAT IS COVERED Not available 03/20/2022 11:10:12 05/25/2022 05/25/2022 [id number] [place] [id number] (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) MDM MODERATE MUST MEET 2 OUT OF 3 ELEMENTS: PROBLEMS, DATA OR RISK ELEMENT 1: PROBLEMS ADDRESSED 1 OR MORE CHRONIC ILLNESS WITH EXACERBATION OR 2 OR MORE STABLE CHRONIC ILLNESSES OR 1 UNDIAGNOSED NEW PROBLEM OR 1 ACUTE ILLNESS W/SYMPTOMS OR 1 ACUTE COMPLICATED INJURY ELEMENT 2: DATA MUST MEET 1 OF 3 CATEGORIES CATEGORY 1: REVIEW OF PRIOR EXTERNAL NOTES, REVIEW OF RESULTS, ORDERING OF EACH TEST, ASSESSMENT REQUIRING INDEPENDENT HISTORIAN OR CATEGORY 2: INDEPENDENT INTERPRETATION OF TESTS BY ANOTHER PHYSICIAN OR SPECIALIST OR CATEGORY 3: DISCUSSION OF MGT OR TEST INTERPRETATION W/EXTERNAL PHYSICIAN OR SPECIALIST ELEMENT 3: RISK RISK OF COMPLICATIONS AND/OR MORBIDITY OR MORTALITY OF PATIENT MANAGEMENT PROVIDER MUST THOROUGHLY DOCUMENT EACH ELEMENT THAT IS COVERED Not available 05/25/2022 11:46:44 07/06/2023 07/06/2023 [id number] [place] [id number] (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 REVIEW OF PRIOR EXTERNAL NOTES/RESULTS, ORDERING OF TEST(S) CATEGORY 2. 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 REVIEW OF PRIOR EXTERNAL NOTES/RESULTS, ORDERING OF TEST(S) CATEGORY 2. 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 REVIEW OF PRIOR EXTERNAL NOTES/RESULTS, ORDERING OF TEST(S) CATEGORY 2. ASSESSMENT REQUIRING INDEPENDENT HISTORIAN(S) INCLUDE WHO THE HISTORIAN IS AND RELATION TO PT AND WHY PT IS UNABLE TO GIVE COMPLETE HISTORY ELEMENT 3: RISK (LOW) RISK OF COMPLICATIONS AND/OR MORBIDITY OR MORTALITY OF PATIENT MANAGEMENT PROVIDER MUST THOROUGHLY DOCUMENT ALL OF THE ELEMENTS COVERED Not available 09/29/2023 15:11:03 Plan of Treatment Reminders Order Date Submit Date Provider Last Modified By Organization Details Last Modified Time Details Appointments FOLLOW UP 15 2024 02:15P M DR SOTO Not available Not available Not available Lab HbA1c (hemoglob in A1c), blood 2023 024 [facility], [address] [place] [address], [place], [address], 09/29/2023 15:12:32 CMP, serum or plasma 2023 024 [facility], [address] [place] [address], [place], [address], 09/29/2023 15:12:32 pro BNP (pro B-type natriuret ic peptide), serum or plasma 2021 022 [facility] (Centralized Electronic Ordering - All Locations), Patient Can Go To The Location Of Their Choice, [id number] 05/25/2022 12:00:37 Referral None recorded. Procedures None recorded. Surgeries None recorded. Imaging None recorded. Medication Orders hydrocort isone 2.5 % topical cream with perineal applicato r 2023 024 [facility]/Pharmacy #[id number], [address] [place], [address], 09/14/2023 11:57:06 Patient TargetsNo targets recorded. Patient Instructions Encounter Date Encounter Id Patient Instructions Last Modified By Organization Details Last Modified Time 07/06/2023 [id number] type 2 diabetes: care instructions Not available 07/06/2023 15:19:39 pulse oximetry* Not available 07/06/2023 15:19:41 Reason for Referral None Reported. Results Created Date Observation Date Name Description Value Unit Range Abnormal Flag Note LastModifiedBy Organization Detail LastModifiedTime 07/06/2007/06/2023 pulse oxime try* Result 99 Not Available [facility] [address], [place], [address], 07/05/2023 12:02:24 05/25/20 22 05/19/2022 MRI, heart funct ion and morph ology , w/wo contr ast No observ ation record ed. BARCODE Not Available 2021 12:12:47 Result Notes None recorded. Problems Name Problem SNOMED Code Status Onset Date Resolution Date Notes Provider Name and Address Organization Details Recorded Time Cardiac arrest 318639402 Active 2018 Not Available [facility] 3 18:28:12 Obstructiv e sleep apnea syndrome 73620182 Active 2018 Not Available [facility] 3 18:28:12 Chronic kidney disease 850218144 Active 2018 Not Available [facility] 3 18:28:12 Hypertensi ve disorder 73591814 Active 2018 Not Available [facility] 3 18:28:12 Sinus tachycardi a 78977660 Active 2018 Not Available [facility] 3 18:28:12 Hyperchole sterolemia 75468422 Active 2018 Not Available [facility] 3 18:28:12 Acute non-ST segment elevation myocardial infarction 593587034 Active 2021 Not Available [facility] 3 18:28:12 Anxiety 40303043 Active 2021 Not Available [facility] 3 18:28:12 Congestive heart failure 37332500 Active 2021 Not Available [facility] 3 18:28:12 Type 2 diabetes mellitus without complicati on 878859372 Active 2022 NAVEED NOEL [address] [place], [address], [facility] 3 14:30:59 Bleeding internal hemorrhoid s 01361935 Active 2023 Carlitos Soto DO [address] [place], [address], [facility] 4 11:55:04 Heart failure 54185533 Active 2023 Carlitos Soto, DO [address] [facility] [place], [place], [address], [facility] 4 15:09:49 Problem Notes None recorded. Procedures Surgical History None recorded. Imaging Results Imaging Date Name Status LastModified by Organiz ation Details LastModified Time 05/19/2022 MRI, heart function and morphology, w/wo contrast completed BARCODE Information not available 05/25/2022 12:12:47 Procedure Notes None recorded. Medical Equipment None Reported. Allergies No known drug allergies Medications Name Sig Start Date Stop Date Status Note LastModified by Organization Details LastModified Time atorvastati n 80 mg tablet Take 1 tablet every day by oral route. 01/18 completed Not Available Not Available Not Available carvedilol 25 mg tablet TAKE 1 TABLET BY MOUTH TWICE A DAY active Not Available Not Available No t Available carvedilol 6.25 mg tablet TAKE 1 TABLET BY MOUTH TWICE A DAY 05/25 completed Not Available Not Available Not Available carvedilol 12.5 mg tablet TAKE 1 TABLET BY MOUTH TWICE A DAY 05/25 completed Not Available Not Available Not Available citalopram 10 mg tablet TAKE 1 TABLET BY MOUTH EVERY DAY active Not Available Not Available No t Available aspirin 81 mg tablet,angel yed release 1 po qd needs appt for full month supply call office 2024 active Not Available Not Available Not Avai lable spironolact one 25 mg tablet TAKE 1 TABLET BY MOUTH EVERY DAY active Not Available Not Available No t Available hydrocortis one 2.5 % topical cream with perineal applicator APPLY 1 APPLICATI ON TOPICALLY TWICE A DAY FOR 10 DAYS active Not Available Not Available No t Available lorazepam 0.5 mg tablet TAKE 1 TABLET BY MOUTH THREE TIMES A DAY FOR 7 DAYS 05/25 completed Not Available Not Available Not Available nitroglycer in 0.[address] 1 TABLET UNDER TONGUE EVERY 5 MIN NEEDED FOR CHEST PAIN, MAX OF 3 DOSES/15 MIN CALL 911/SEEK MEDICAL ATTENTION IF PAIN PERSISTS* * active Not Available Not Available No t Available rosuvastati n 5 mg tablet TAKE 1 TABLET BY MOUTH EVERY DAY 02/28 completed Not Available Not Available Not Available rosuvastati n 20 mg tablet TAKE 1 TABLET BY MOUTH EVERY DAY *FURTHER REFILLS @ NEXT APPT* 2024 active Not Available Not Available Not Avai lable Brilinta 90 mg tablet TAKE 1 TABLET BY MOUTH TWICE A DAY 2023 active Not Available Not Available Not Avai lable Farxiga 10 mg tablet TAKE 1 TABLET BY MOUTH EVERY DAY 2023 active Not Available Not Available Not Avai lable aspirin 80 mg tablet Take 1 tablet every day by oral route. 10/28 completed Not Available Not Available Not Available Entresto 49 mg-51 mg tablet take 1 po bid needs appt for further refills. call office 2024 active Not Available Not Available Not Avai lable Entresto 24 mg-26 mg tablet TAKE 1 TABLET BY MOUTH TWICE A DAY 03/20 completed Not Available Not Available Not Available Vitals Date Recorded Body height Body mass index (BMI) Body weight Heart rate Oxygen saturation Oxygen saturation in Arterial blood by Pulse oximetry Systolic blood pressure Diastolic blood pressure Provider Name and Address Organization Details Last Updated DateTime 2 187.96 cm 39.1 kg/m2 452034. 52 g 77 /min 98 % 98 % 138 mm[Hg] 70 mm[Hg] Carlitos Soto, DO [address] [place], [address] 2 10:37:33 Date Recorded Body height Body mass index (BMI) Body weight Heart rate Oxygen saturation Oxygen saturation in Arterial blood by Pulse oximetry Systolic blood pressure Diastolic blood pressure Provider Name and Address Organization Details Last Updated DateTime 2 187.96 cm 39.5 kg/m2 919889. 37 g 68 /min 96 % 96 % 122 mm[Hg] 64 mm[Hg] Silvina Bhatia [facility] 2 11:17:21 Date Recorded Body weight Heart rate Oxygen saturation Oxygen saturation in Arterial blood by Pulse oximetry Systolic blood pressure Diastolic blood pressure Provider Name and Address Organization Details Last Updated DateTime 3 760392. 48 g 81 /min 99 % 99 % 105 mm[Hg] 71 mm[Hg] Carrie Oshea [facility] 3 14:52:23 Date Recorded Body height Body mass index (BMI) Body weight Heart rate Oxygen saturation Oxygen saturation in Arterial blood by Pulse oximetry Systolic blood pressure Diastolic blood pressure Provider Name and Address Organization Details Last Updated DateTime 4 187.96 cm 42.6 kg/m2 551944. 67 g 80 /min 97 % 97 % 108 mm[Hg] 60 mm[Hg] Elizabeth Diallo [facility] 4 11:49:52 Social History Question Answer Notes LastModified by Organizat ion Details LastModified Time Tobacco Smoking Status Never Smoker Not Available [facility] 07/09/2020 03:36:24 What Was The Date Of Your Most Recent Tobacco Screening? 09/14/2023 [email or web address] Information not available 09/14/2023 Do You Or Have You Ever Used Any Other Forms Of Tobacco Or Nicotine? No Information not available 03/20/2022 Sex: Unknown Functional Status None recorded. Mental Status None recorded. Family History Nothing Reported. Medical History No medical history recorded. Immunizations Vaccine Type Date Status Note Provider Nam e and Address Organization Details Recorded Time COVID-19, mRNA, LNP-S, PF, 100 mcg/0.5mL dose or 50 mcg/0.25mL dose 09/20/2020 completed Not Available [facility] 3 18:28:12 COVID-19, mRNA, LNP-S, PF, 100 mcg/0.5mL dose or 50 mcg/0.25mL dose 10/18/2020 completed Not Available [facility] 3 18:28:12 Past Encounters Encounter ID Performer Location Encounter Start Date Encounter Closed Date Diagnosis/Indication Diagnosis SNOMED-CT Code Diagnosis ICD10 Code Diagnosis Note [id number] Carlitos Soto DO [facility] [address] [facility],[place] [address] 10/28/2018 09:58:05 10/28/2018 10:51:34 Cardiac arrest 767652545 I46.9 now on defib will have him start on a exercise program and diet and we discussed this for a long period of time will have him recheck Hypertensive disorder 38 160307 I10 here and has been doing ok cont current tx Chronic ki dney disease 139592214 N18.9 is now stable and we will cont to monitor Hypercholesterolemia 136 50208 E78.00 note has stopped atorvastat in on his own bc of pain and discomfort in his legs will rechk and have him try the crestor [id number] Carlitos Soto, [facility] [address] [facility] [place] [address] 11/01/2018 13:44:37 11/01/2018 14:56:58 Cardiac arrest 994905982 I46.9 now on defib will have him start on a exercise program and diet and we discussed this for a long period of time will have him recheck Hypertensive disorder 38 150381 I10 here and has been doing ok cont current tx Postoperat pennie wound infection 79069768 T81.40XD now cleared and no evid of any leak or discharge Hypercholesterolemia 136 27937 E78.00 note has stopped atorvastat in on his own bc of pain and discomfort in his legs will rechk and have him try the crestor [id number] Carlitos Soto, [facility] [address] [facility] [place] [address] 11/16/2018 14:23:42 11/16/2018 15:58:27 Cardiac arrest 849647727 I46.9 now on defib will have him start on a exercise program and diet and we discussed this for a long period of time will have him recheck Hypertensive disorder 38 252300 I10 here and has been doing ok cont current tx Hypercholesterolemia 136 79133 E78.00 now that legs are better will try taking crestor and will let us know Obstructiv e sleep apnea syndrome 37349194 G47.33 doing well no issues Carlitos Soto [facility] [address] [facility] [place] [address] 01/18/2019 09:20:27 01/18/2019 10:26:14 Hypertensive disorder 37403100 I10 here and has been doing ok cont current tx Hypercholesterolemia 136 03604 E78.00 now that legs are better will try taking crestor and legs are much better and is doing ok Obstructiv e sleep apnea syndrome 81040562 G47.33 doing well no issues he has been using the cpap and has been benefited greatly also the patients cpap machine is broken as its over 4 years old it has a broken knob on top and is unable to adequately move air as it should will need to get a new machine,,, , [id number] Carlitos Soto DO [facility] [address] [facility],[place] [address] 05/24/2019 09:53:21 05/24/2019 12:12:35 Hypertensive disorder 16862714 I10 here and has been doing ok cont current tx Chronic ki dney disease 328995510 N18.9 is now stable and we will cont to monitor lab ordered for this week will check cmp Obstructiv e sleep apnea syndrome 48375227 G47.33 doing well no issues [id number] Carlitos Soto DO [facility] [address] [facility],[place] [address] 10/13/2019 13:51:33 10/13/2019 14:37:21 Hypertensive disorder 42509096 I10 here and has been doing ok cont current tx Hypercholesterolemia 136 01191 E78.00 now that legs are better will try taking crestor and legs are much better and is doing ok Chronic ki dney disease 637896498 N18.9 is now stable and we will cont to monitor lab ordered for this week will check cmp Obstructiv e sleep apnea syndrome 24782414 G47.33 doing well no issues with new machine Cardiac arrest 349267788 I46.9 now on defib will have him start on a exercise program and diet and we discussed this for a long period of time will have him recheck will be having a defib check this december Carlitos Soto DO [facility] [address] [facility],[place] [address] 11/22/2020 09:27:16 11/22/2020 11:11:30 Hypertensive disorder 83178377 I10 here and has been doing ok cont current tx Hypercholesterolemia 136 38225 E78.00 now that legs are better will try taking crestor and legs are much better and is doing ok Obstructiv e sleep apnea syndrome 92863301 G47.33 doing well no issues with new machine still doing well [id number] Carlitos Soto, [facility] [address] [facility] [address] 05/16/2021 10:11:57 05/16/2021 10:58:48 Cardiac arrest 018870248 I46.9 now on defib will have him start on a exercise program and diet and we discussed this for a long period of time will have him recheck will be having a defib check this december Hypertensive disorder 38 646934 I10 here and has been doing ok but we noticed he is running borderline will have him get a new cuff at home and start recording his levelwell see him back in a couple mocont current tx Obstructiv e sleep apnea syndrome 56693529 G47.33 doing well no issues with new machine still doing well Chronic ki dney disease 465107145 N18.9 is now stable and we will cont to monitor lab ordered for this week will check cmp and repeat this today [id number] Carlitos Soto, [facility] [address] [facility] [address] 10/07/2021 08:36:00 10/08/2021 08:40:42 Cardiac arrest 555221312 I46.9 now on defib will have him start on a exercise program and diet and we discussed this for a long period of time will have him recheck will be having a defib check this december Chronic ki dney disease 773021149 N18.9 is now stable and we will cont to monitor lab ordered for this week will check cmp and repeat this today Hypertensive disorder 38 671322 I10 here and has been doing ok but we noticed he is running borderline will have him get a new cuff at home and start recording his levelwell see him back in a couple mocont current tx Obstructiv e sleep apnea syndrome 13698731 G47.33 doing well no issues with new machine still doing well Hypercholesterolemia 136 09003 E78.00 now that legs are better will try taking crestor and legs are much better and is doing ok Impaired f asting glycemia 779914533 R73.01 [id number] Carlitos Soto DO [facility] [address] [facility] [place] [address] 01/02/2022 14:55:06 01/02/2022 16:34:08 Active or passive immunization 175813356 Z23 ADVISED PATIENT HE IS DUE FOR Tdap Acute non- ST segment elevation myocardial infarction 242966824 I21.4 long detailed discussion we will discuss casewith cardiology we will have him cont current tx Anxiety 48440279 F41.9 [id number] Carlitos Soto DO [facility] [address] [facility] [address] 01/12/2022 12:00:20 01/12/2022 14:37:22 Acute non-ST segment elevation myocardial infarction 453760079 I21.4 long detailed discussion we will have him cont current tx Hypertensive disorder 38 692547 I10 bp is running excellent and he has had some mild dizziness when getting up quickwill have him get a new cuff at home and start recording his levelwell see him back in a couple mocont current tx Obstructiv e sleep apnea syndrome 32177419 G47.33 doing well no issues with new machine still doing well [id number] Carlitos Soto DO [facility] [address] [facility] [address] 03/20/2022 10:33:40 03/20/2022 11:45:34 Hypertensive disorder 25446402 I10 bp is running excellent and he has had some mild dizziness when getting up quickwill have him get a new cuff at home and start recording his levelwell see him back in a couple mocont current tx Chronic ki dney disease 156336286 N18.9 is now stable and we will cont to monitor lab ordered for this week will check cmp and repeat this today Hypercholesterolemia 136 31165 E78.00 now that legs are better will try taking crestor and legs are much better and is doing ok Acute non- ST segment elevation myocardial infarction 091194299 I21.4 long detailed discussion we will have him cont current tx Active or passive immunization 262558124 Z23 patient advised he is due for tdap Congestive heart failure 65681118 I50.9 stable and is tolerating meds and increased doses and this is controlled by cardiologi stshas an mri of heart scheduled [id number] Carlitos Soto DO [facility] [address] [facility] [place] [address] 05/25/2022 10:55:48 05/25/2022 13:11:24 Acute non-ST segment elevation myocardial infarction 423410850 I21.4 long detailed discussion we will have him cont current tx Anxiety 57362686 F41.9 stable Congestive heart failure 07873222 I50.9 stable and is tolerating meds and increased doses and this is controlled by cardiologi stshas an mri of heart scheduled Hypertensive disorder 38 878401 I10 bp is running excellent and he has had some mild dizziness when getting up quickwill have him get a new cuff at home and start recording his levelwell [place] [id number] Carlitos Soto [facility] [address] [facility],[place] [address] 07/06/2023 14:47:28 07/06/2023 15:30:12 Hypercholesterolemia 30449822 E78.00 now that legs are better will try taking crestor and legs are much better and is doing ok Congestive heart failure 42700271 I50.9 stable and is tolerating meds and increased doses and this is controlled by cardiologi stshas an mri of heart scheduled Chronic ki dney disease 969502445 N18.9 is now stable and we will cont to monitor lab ordered for this week will check cmp and repeat this today Type 2 rach betes mellitus without complication 543342077 E11.9 trying to be careful has gained wgt again over the summergive n such and his struggles i feel he is an ideal candidate for mounjaro will try to get [id number] Carlitos Soto [facility] [address] [facility],[place] [address] 09/14/2023 11:38:49 09/15/2023 08:16:27 Bleeding internal hemorrhoids 36007833 K64.8 will use intra rectal cream [id number] Carlitos Soto [facility] [address] [facility] [place] [address] 09/29/2023 09:12:12 09/29/2023 15:19:35 Type 2 diabetes mellitus without complication 072768802 E11.9 trying to be careful has gained wgt again over the summergive n such and his struggles i feel he is an ideal candidate for mounjaro will try to get Cardiac arrest [id number] I46.9 now on defib will have him start on a exercise program and diet and we discussed this for a long period of time will have him recheck will be having a defib check this december Heart failure [id number] I 50.9 stable no issues Obstructiv e sleep apnea syndrome [id number] G47.33 doing well no issues with new machine still doing well Health Concerns Section Related Observation LastModified by Organization Detai ls LastModified Time None Recorded Concern Status LastModified by Organization Details LastModified Time None Recorded Advance Directives Directive None Recorded Payers Encounter Date Sequence Insurance Name Policy Number Policy Linda Covered Member ID Linda Member ID Guarantor Name 03/20/2022 1 [facility] [id number] 1 Dav R Augusta [id number] Dav R Suzi 05/25/2022 1 [facility] [id number] 1 Dav R Augusta [id number] Dav R Augusta 07/06/2023 1 [facility] [id number] 1 Dav R Suzi [id number] Dav R Suzi 09/14/2023 1 [facility] [id number] 1 Dav R Augusta [id number] Dav R Augusta 09/29/2023 1 [facility] [id number] 1 Dav R Suzi [id number] Dav R Suzi Notes Date Note Type Note Provider Name and Address Organization Details Recorded Time 2 text/html here for rechk and is doing well overallstates he is feeling well and is being bumped up on medication per cardilogist dr cash unfortunately we have no notes etche is doing well with cardiac rehabbps are excellent 100/60 todaynop cp no sob Carlitos Soto, DO [address] [facility], [place], [place], [address], [facility] 03/20/2022 11:17:25 2 text/html Care Management - Coronary Artery Disease (CAD)Reported bypatient.Self Care:not under emotional stress Severity:symptoms are improving; does not interfere with daily activities Associated Symptoms:no chest pain; no shortness of breath; no left arm pain; no back pain; no neck pain; no left shoulder pain; no right shoulder pain; no numbness; no sweatsHypertension F/UReported bypatient.Medications:t aking medications as directed; no side effects from medication Lifestyle:regular exercise; limiting/avoiding salt; compliant with low salt diet Associated Symptoms:no dizziness; no lightheadedness; no chest pain; no shortness of breath; no palpitations; no edema; no calf pain with exertion; no headache here for kim and is doing ok and feels wellnot back to work yetno cp no sob unless exertinghas one cardiac rehab appt left feels it has helped him Carlitos Soto DO [address] [place] [address], [phone], [facility] 05/25/2022 11:57:12 3 text/html here for rechk and is doing okremains stable overall and is still working Carlitos Soto DO [address] [place], [address], [facility] 07/06/2023 15:20:55 4 text/html patient is evaluated via tele/video assessment per patient consentduring current pandemicappt for discussion of trouble with hemorrhoidsrelates that had a hard bm 2 weeks ago with a lot of bloodhaving a annoying rectal pain since thenno further bleedingrelates tried otc rectal creams Carlitos Soto DO [address] [place], [address], [facility] 09/14/2023 12:01:08 4 text/html patient is evaluated via tele/video assessment per patient consentduring current pandemic states that his rectal bleeding and pain has now stoppedfeels goodno major issues\no cp nos sob bowels normal now Carlitos Soto DO [address] [place], [phone], [facility] 09/29/2023 15:13:28
[2024-10-30 14:08] LABS: Estimated Average Glucose 126 mg/dL; Hemoglobin A1C 168.3986 umol/L; Total Hemoglobin (HGBA1C) 3977.2681 umol/L
[2024-10-30 14:23] LABS: Albumin Level 4.1 g/dL (3.5-5.0); Alkaline Phosphatase 43 U/L (39-117); Anion Gap 10 (12-20); Aspartate Amino Transferase 39 U/L (5-37); Bilirubin Total 0.5 mg/dL (0.0-1.0); Blood Urea Nitrogen 18 mg/dL (9-16); Calcium 9.4 mg/dL (8.4-10.2); Carbon Dioxide 25 mmol/L (22-29); Chloride 108 mmol/L (96-108); Estimated Glomerular Filt Rate 59; Glucose Random 106 mg/dL (60-115); Potassium 4.3 mmol/L (3.3-5.1); Sodium 139 mmol/L (135-145); Total Protein 7.9 g/dL (6.5-8.0)
[2024-10-30 15:57] LABS: Alanine Aminotransferase 34 U/L (0-40)
== END 2024-10-30 09:25 | disposition home or self-care (01) ==
LOC: HO.MANLDS 09:24
PROVIDERS: Visit Provider Internal Medicine
DX: E11.9 Type 2 diabetes mellitus without complications (principal)
CPT/HCPCS: 36415; 80053; 83036

== ENCOUNTER 2024-12-01 08:58 | Outpatient (REF) | payer OTHER, SELFPAY ==
[2022-05-27 12:27] VITALS: BP 104/66; BP 98/60; BMI 38.9
[2024-12-01 14:09] LABS: Cholesterol 99 mg/dL (<200); HDL Cholesterol 36 mg/dL (>40); LDL Cholesterol Calculated 37 mg/dL (<100); Triglycerides 134 mg/dL (<150)
[2024-12-01 14:18] LABS: Folate 11.8 ng/mL (> or = 4.0); Prostate Specific Antigen 0.82 ng/mL (<0.05-4.0); Vitamin B12 222 pg/mL (200-900)
[2024-12-01 14:30] LABS: T4 Thyroxine 6.1 ug/dL (4.5-12.0); Thyroid Stimulating Hormone 1.33 uIU/mL (0.32-4.0)
[2024-12-04 21:42] LABS: Lyme Abs Screen <0.90 index
[2024-12-06 22:13] LABS: Testosterone, Total 259 ng/dL (250-1100)
[2024-12-08 11:47] LABS: VITAMIN D (1,25 OH) D3 27 pg/mL; Vit D (1,25-Dihydroxy) Total 27 pg/mL (18-72); Vitamin D (1,25 OH) D2 <8 pg/mL
== END 2024-12-01 08:59 | disposition home or self-care (01) ==
LOC: HO.MANLDS 08:58
PROVIDERS: Visit Provider Internal Medicine
DX: Z12.5 Encounter for screening for malignant neoplasm of prostate (principal); I10 Essential (primary) hypertension; R53.83 Other fatigue
CPT/HCPCS: 36415; 80061; 82607; 82652; 82746; 84153; 84403; 84436; 84443; 86617; 86618

== ENCOUNTER 2025-02-28 10:30 | Emergency (ER) | payer OTHER, SELFPAY ==
[2022-05-27 12:27] VITALS: BP 104/66; BP 98/60; BMI 38.9
--- NOTE | ~2025-02-28 | CT_ITS ---
EXAMINATION: CT ABDOMEN AND PELVIS WITH CONTRAST CLINICAL INFORMATION: Left lower quadrant pain COMPARISON: None available. TECHNIQUE: Multidetector volumetric images were obtained from the superior aspect of the liver through the pubic symphysis following administration 85 mL of Omnipaque 350 intravenous contrast. Sagittal and coronal reformatted images were obtained on the technologist's workstation. Oral contrast: No This CT examination was performed using dose optimization techniques as appropriate, variously including the following: *Automated exposure control *Adjustment of mA and/or kV according to patient size (this includes techniques or standardized protocols for targeted exams where dose is matched to indication/reason for exam; i.e. extremities or head) *Use of iterative reconstruction technique DLP: 1172 mGY*cm FINDINGS: LUNG BASES: The visualized lung bases are unremarkable. LIVER, GALLBLADDER, AND BILIARY TREE: Diffuse fatty changes are present in the liver. Partially calcified stone is visible in the gallbladder. There is no pericholecystic fluid or gallbladder wall thickening. Bile duct does not appear dilated. PANCREAS: Unremarkable. SPLEEN: Unremarkable. ADRENAL GLANDS: Unremarkable. KIDNEYS AND URETERS: Renal cortical scarring in the cortex of the lateral right kidney. BLADDER: Unremarkable. GASTROINTESTINAL TRACT: Diverticulosis is noted in the descending and sigmoid colon. There is moderate fat stranding along the proximal sigmoid colon . There is no localized fluid collection or extraluminal gas. ABDOMINAL WALL: Small umbilical hernia contains normal density adipose tissue. LYMPH NODES: Normal. VASCULAR: Unremarkable. PELVIC VISCERA: Unremarkable. OSSEOUS STRUCTURES: Mild degenerative disc disease is visible in the lower thoracic and lumbar spine. There is vacuum phenomena in the SI joints. CT/CT abdomen pelvis w IV con IMPRESSION: Acute diverticulitis in the proximal sigmoid colon without free air or abscess. Chronic renal cortical scarring, right. Fatty liver Cholelithiasis. Mild degenerative disc disease. Fleischner guidelines were followed. Electronically signed by: Juan Meade MD 02/28/2025 12:41 PM EDT
--- NOTE | ~2025-02-28 | XR_ITS ---
EXAMINATION: XR CHEST 2 VIEWS HISTORY: cough since 01/18 COMPARISON: Comparison is made with the prior examination dated 12/25/2021. FINDINGS: PA and lateral views of the chest are submitted. 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 The lungs are expanded and clear. There is no pleural effusion, pneumothorax, or pulmonary vascular congestion. The heart is normal in size. The bones are intact. XR/XR chest 2V IMPRESSION: No acute cardiopulmonary abnormality. Electronically signed by: Azar Choe MD 02/28/2025 11:05 AM EDT
[2025-02-28 10:48] VITALS: BP 94/72; PULSE 91; RESP 16; TEMP 36.2; O2SAT 96; BMI 42.5
--- NOTE | 2025-02-28 10:50 | ED.GENADULT ---
HPI - General Adult General Chief complaint: Abdominal Pain Stated complaint: lower left abd pain Time Seen by Provider: 02/28/25 11:10 Source: patient Mode of arrival: ambulatory Limitations: no limitations History of Present Illness ED Provider: [facility] narrative: 54-year-old male with cardiac history, presenting with left lower quadrant pain started yesterday, continued through today, no dysuria no hematuria no nausea no vomiting no hematemesis no hematochezia, no diarrhea, unrelated to this he has had cough and apparently his PCP requested that as long as he is in the ER to obtain a chest x-ray as well, he has had no complaints about the cough during our discussion Related Data Home Medications ?Medication ?Instructions ?Recorded ?Confirmed aspirin 81 mg tablet,delayed 1 tab PO BEDTIME 12/25/21 12/25/21 release carvedilol 6.25 mg tablet 1 tab PO BID 12/25/21 12/25/21 rosuvastatin 5 mg tablet 1 tab PO DAILY 12/25/21 12/25/21 Previous Rx's ?Medication ?Instructions ?Recorded heparin (porcine) 25,000 unit/250 25,000 unit (250 mL) continuous IV 12/26/21 mL in 0.45 % sodium chloride IV infusion .Q0M 1 day soln amoxicillin 875 mg-potassium 1 tab PO BID 2 weeks #28 tabs 02/28/25 clavulanate 125 mg tablet Allergies Allergy/AdvReac Type Severity Reaction Status Date / Time tetracaine Allergy Unknown Verified 02/28/25 10:52 Review of Systems Constitutional: Constitutional: Reports as per [facility] Past Medical History Medical History Cardiac defibrillator in place Obesity Social History Social History Household Members: Spouse and Family Housing: House Do you presently have visiting nurse or other home services: No Alcohol intake: current Alcohol intake frequency: holidays/special occasions only Patient Tobacco Use Status: Never used Tobacco Smoked in Last 30 Days: No Use of substances other than those prescribed or required for medical reasons: No Advance Directives: No Advance Directives Information Provided: Yes Current occupational status: employed Physical Exam ED Vital Signs: Vital Signs - 24 hr 02/28/25 10:48 Temperature 97.1 F Pulse Rate 91 Respiratory Rate 16 Blood Pressure 94/72 Pulse Oximetry 96 Oxygen Delivery Method Room Air BMI result Body Mass Index 42.5 Const Other: Gen: ?Overall well-appearing patient HEENT: PERRLA, EOMI, MMM, Neck: Supple, no LAD CV: RRR, no obvious murmurs appreciated Resp: ?No wheezing rales rhonchi no stridor moving air well Abd: ?Bowel sounds are present, tender left lower quadrant, some voluntary guarding, no tenderness in the right upper quadrant no tenderness in the right lower quadrant, MSK: FROM, strength 5/5 all extremities Skin: Warm, dry, intact, Neuro: ?Alert and oriented x3, moving upper and lower extremities symmetrically, no obvious facial asymmetry noted Course Course Course Narrative: This is a rapid medical exam performed by Lilia Valentino NP: Additional HPI, ROS, PE not included below will be deferred to primary provider. Patient is a 54-year-old male with history of NSTEMI, cardiac defibrillator presenting to the ED with complaint of left lower quadrant abdominal pain since yesterday afternoon. Denies hematuria, nausea, vomiting. Denies history of kidney stones. Also reports ongoing cough since 01/18, has outpatient cxr ordered. Plan: labs, UA, cxr Medications Administered Discontinued Medications Generic Name Dose Route Start Last Admin Trade Name Freq PRN Reason Stop Dose Admin Iohexol 85 ml 02/28/25 12:21 02/28/25 12:22 Iohexol 350 Mg/Ml 100 Ml Infus..Btl IV 02/28/25 12:22 85 ml ONCE ONE Administration Medical Decision Making Medical Decision Making [facility] Narrative: Considerations for workup as below, my considerations is mostly related to infectious etiology such as diverticulitis as this is an acute onset he has had no other symptoms, he has never had diverticulitis in the past so this time we will obtain imaging of the abdomen, unrelated to the abdominal pain his PCP wanted a chest x-ray, but his lungs are clear, and there is no evidence he has rhonchi or wheezing or anything else to suspect underlying pneumonia, Differential Diagnosis Differential Diagnoses: The differential diagnosis associated with the presentation includes Diverticulitis, appendicitis, constipation, hernia, SBO, infectious colitis, ischemic colitis Admission/Observation Consideration of admission/observation: Escalation of care including admission/observation considered Lab Data [facility] Lab Attestation statement: I reviewed the patient's lab results. 02/28/25 11:30 02/28/25 11:30 Labs: Lab Results 02/28/25 02/28/25 Range/Units 11:30 12:30 WBC 17.0 H (4.8-10.8) X10*3/uL RBC 4.73 (4.60-5.80) X10*6/uL Hgb 14.3 (14.0-18.0) g/dl Hct 41.1 L (42.0-52.0) % MCV 86.9 (80.0-98.0) fL MCH 30.2 (27.0-33.0) pg MCHC 34.8 (31.0-36.0) g/dl RDW 14.2 (11.0-16.0) % Plt Count 224 (160-400) X10*3/uL MPV 10.2 (9.4-12.4) fL Immature Gran % (Auto) 0.4 (0.0-0.4) % Neut % (Auto) 80.7 H (45-73) % Lymph % (Auto) 8.1 L (20-40) % Caswell % (Auto) 10.1 (2-11) % Eos % (Auto) 0.5 (0-4) % Baso % (Auto) 0.2 (0-2) % Lymph # (Auto) 1.4 (1.2-4.9) X10*3/uL Caswell # (Auto) 1.7 H (0.1-1.2) X10*3/uL Eos # (Auto) 0.1 (0.0-0.4) X10*3/uL Baso # (Auto) 0.0 (0.0-0.2) X10*3/uL Abs Immat Gran (auto) 0.06 H (0.00-0.03) X10*3/uL Absolute Neuts (auto) 13.7 H (2.0-8.3) x10*3/uL Absolute Nucleated RBC 0.000 (0.0-0.012) X10*3/uL Nucleated RBC % (auto) 0.0 (0.0-0.2) /100WBC Smear Tech's Comments VERIFIED Sodium 138 (135-145) mmol/L Potassium 4.1 (3.3-5.1) mmol/L Chloride 106 (96-108) mmol/L Carbon Dioxide 23 (22-29) mmol/L Anion Gap 13 (12-20) BUN 15 (9-16) mg/dL Creatinine 1.21 (0.5-1.4) mg/dL Estim Creat Clear Calc 103.7 Estimated GFR > 60 Random Glucose 108 (60-115) mg/dL Calcium 9.2 (8.4-10.2) mg/dL Total Bilirubin 0.9 (0.0-1.0) mg/dL AST 19 (5-37) U/L ALT 20 (0-40) U/L Alkaline Phosphatase 38 L (39-117) U/L Total Protein 7.2 (6.5-8.0) g/dL Albumin 4.3 (3.5-5.0) g/dL Urine Color Yellow Urine Appearance Clear Urine pH 6.0 (5.0-9.0) Ur Specific Archer 1.010 (1.005-1.025) Urine Protein Negative (Neg-Trace) mg/dL Urine Glucose (UA) >=1000 H (Negative) mg/dL Urine Ketones 15 (Negative) mg/dL Urine Blood Negative (Negative) Urine Nitrite Negative (Negative) Ur Leukocyte Esterase Negative (Negative) Radiology Impression Discussion of test interpretation with radiology: I have reviewed the radiologist's reading. Radiologist Impression: CT/CT abdomen pelvis w IV con IMPRESSION: Acute diverticulitis in the proximal sigmoid colon without free air or abscess. Chronic renal cortical scarring, right. Fatty liver Cholelithiasis. Mild degenerative disc disease. Fleischner guidelines were followed. Chronic Conditions Patient?s care impacted by: Diabetes Discharge Plan Discharge Clinical Impression: Acute diverticulitis, Recurrent cough Patient Disposition: Home, Self-Care Instructions: Diverticulitis (ED) Additional Instructions: You did have chest x-ray my understanding your PCP wanted that the chest x-ray is unremarkable, your CAT scan revealed diverticulitis I am starting her on antibiotics, I will provide 2 weeks' worth of supply, you can take it for 10 days and if you better after 10 days you can stop and if he is still feeling some symptoms you can expand to 14 day course, 1st dose in the ER, thereafter continue in the evening, follow up with the PCP any other issues concerns come back to the ER On amoxicillin-clavulanate, softer bowel movements are to be expected. Call your provider if you move your bowels more than 4 times a day, your bowel movements are almost all liquid, or you get a rash.? Prescriptions: New amoxicillin-pot clavulanate 875-125 mg tablet 1 tab PO BID 14 Days Qty: 28 0RF No Action carvedilol 6.25 mg tablet 1 tab PO BID aspirin 81 mg tablet,delayed release (DR/EC) 1 tab PO BEDTIME rosuvastatin 5 mg tablet 1 tab PO DAILY heparin(porcine) in 0.45% NaCl 25,000 unit/250 mL Parenteral Solution 25,000 unit continuous IV infusion .Q0M 1 Days 0RF Print Language: Estonian
[2025-02-28 11:36] LABS: Basophils Percent Auto 0.2 % (0-2); Eosinophils Absolute Auto 0.1 X10*3/uL (0.0-0.4); Eosinophils Percent Auto 0.5 % (0-4); Hematocrit 41.1 % (42.0-52.0); Hemoglobin 14.3 g/dl (14.0-18.0); Imm Gran Abs Auto 0.06 X10*3/uL (0.00-0.03); Imm Gran Pct Auto 0.4 % (0.0-0.4); Lymphocytes Absolute Auto 1.4 X10*3/uL (1.2-4.9); Lymphocytes Percent Auto 8.1 % (20-40); MANUAL DIFF FLAG SCAN; Mean Corpuscular HGB Conc 34.8 g/dl (31.0-36.0); Mean Corpuscular Hemoglobin 30.2 pg (27.0-33.0); Mean Corpuscular Volume 86.9 fL (80.0-98.0); Mean Platelet Volume 10.2 fL (9.4-12.4); Monocytes Absolute Auto 1.7 X10*3/uL (0.1-1.2); Monocytes Percent Auto 10.1 % (2-11); Neutrophils Absolute Auto 13.7 x10*3/uL (2.0-8.3); Neutrophils Percent Auto 80.7 % (45-73); Platelet Count 224 X10*3/uL (160-400); Red Blood Count 4.73 X10*6/uL (4.60-5.80); Red Cell Distribution Width 14.2 % (11.0-16.0); SCAN SMEAR FLAG 1
[2025-02-28 11:58] LABS: Alanine Aminotransferase 20 U/L (0-40); Albumin Level 4.3 g/dL (3.5-5.0); Alkaline Phosphatase 38 U/L (39-117); Anion Gap 13 (12-20); Aspartate Amino Transferase 19 U/L (5-37); Bilirubin Total 0.9 mg/dL (0.0-1.0); Blood Urea Nitrogen 15 mg/dL (9-16); Calcium 9.2 mg/dL (8.4-10.2); Carbon Dioxide 23 mmol/L (22-29); Chloride 106 mmol/L (96-108); Creatinine Clr Calc Pharmacy 103.7; Estimated Glomerular Filt Rate > 60; Glucose Random 108 mg/dL (60-115); Potassium 4.1 mmol/L (3.3-5.1); Sodium 138 mmol/L (135-145); Total Protein 7.2 g/dL (6.5-8.0)
[2025-02-28 11:59] LABS: SLIDE REVIEW VERIFIED
[2025-02-28] MEDS: iohexoL 350 MG/ML 100 ML INFUS..BTL 85 ML IV (12:22)
[2025-02-28 12:56] LABS: Appearance Urine Clear; Color Urine Yellow; Glucose Urine UA >=1000 mg/dL (Negative); Leukocyte Esterase Urine Negative (Negative); Nitrite Urine Negative (Negative); UMIC TRIGGER UACC YES; Urine Blood Negative (Negative); Urine Ketones 15 mg/dL (Negative); Urine Protein Negative (Neg-Trace)
[2025-02-28 13:09] LABS: Bacteria Urine None Seen (None Seen); Hyaline Casts Urine 0-2 /LPF (0-2); RBC Urine 0-2 /HPF (0-2); Squamous Epithelial Cell Urine 0-2 /HPF (0-2); WBC Urine 0-5 /HPF (0-5)
[2025-02-28 13:23] VITALS: BP 104/58; PULSE 88; RESP 14; TEMP 36.8; O2SAT 94
[2025-02-28 13:42] VITALS: BP 104/58; PULSE 88; RESP 14; TEMP 36.8; O2SAT 94
--- OUTSIDE RECORDS SUMMARY | 2025-02-28 13:51 | XMS_ITS | Data Portability ---
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) : MDM LOW MUST MEET 2 OF [...] COVERED Not available 07/06/2023 15:18:20 09/14/2023 09/14/2023 [address] [place] [address] (CONSULTING DATABASE ADMINISTRATOR) : [facility] LOW MUST MEET 2 OF 3 ELEMENTS: [...] COVERED Not available 09/14/2023 11:54:53 09/29/2023 09/29/2023 [address] [place] [address] (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 Lab testostero ne, free + total, serum 2024 025 [facility], [address] [place] [address], [address], 09:42:00 lipid panel, blood 2024 025 [facility], [address] [place] [address], [address], 5 11:59:18 PSA, serum or plasma 2024 025 [facility], [address] [place] [address], [address], 14:36:00 testostero ne, total, serum 2024 025 [facility], [address] [place] [address], [address], 13:07:17 vitamin B12 + folate, serum or blood 2024 025 [facility], [address] [place] [address], [address], 14:35:39 vitamin D, 25-hydroxy , total, serum 2024 025 [facility], [address] [place] [address], [address], 5 12:18:03 TSH + T4, serum 2024 025 [facility], [address] [place] [address], [address], 5 11:59:18 lyme disease igg+igm, serum, reflex western blot 2024 025 [facility], [address] [place] [address], [address], 5 12:40:52 HbA1c (hemoglobi n A1c), blood 2023 024 [facility], [address] [place] [address], [address], 4 15:12:32 CMP, serum or plasma 2023 024 [facility], [address] [place] [address], [address], 15:12:32 Referral None recorded. Procedures None recorded. Surgeries None recorded. Imaging None recorded. Medication Orders prednisone 10 mg tablet 2024 025 [facility]acy #2024, [address] [place], [address], 09:40:12 hydrocorti sone 2.5 % topical cream with perineal applicator 2023 024 [email or web address] [facility]armacy #2024, [address] [place], [address], 14:15:05 Patient TargetsNo targets recorded. Patient Instructions Encounter Date Encounter Id Patient Instructions Last Modified By Organization Details Last Modified Time 07/06/2023 [id number] type 2 diabetes: care instructions Not available 07/06/2023 15:19:39 pulse oximetry* Not available 07/06/2023 15:19:41 11/17/2024 [id number] type 2 diabetes: care instructions Not available 11/17/2024 14:34:23 Reason for Referral None Reported. Results Created Date Observation Date Name Description Value Unit Range Abnormal Flag Note LastModifiedBy Organization Detail LastModifiedTime 07/06/2007/06/2023 pulse oxime try* Result 99 Not Available [facility] [address], [place], [address], 07/05/2023 12:02:24 02/29/20 25 02/28/2025 XR, chest , 2 view No observ ation record ed. [facility] (Medical Records) [address] [place] [address], [address], 02/28/2025 11:49:27 02/29/20 25 02/28/2025 CT, abdom en, w/ contr ast No observ ation record ed. [facility] (Medical Records) [address] [place], [address], 02/28/2025 13:24:13 Result Notes None recorded. Problems Name Problem SNOMED Code Status Onset Date Resolution Date Notes Provider Name and Address Organization Details Recorded Time Cardiac arrest 531019348 Active 2018 Soha medina [facility] 5 08:51:23 Obstructi ve sleep apnea syndrome 71252418 Active 2018 Soha medina [facility] 5 08:51:23 Chronic kidney disease 567581880 Active 2018 Not Available [facility] 3 18:28:12 Hypertens pennie disorder 60467159 Active 2018 Soha medina [facility] 5 08:51:23 Sinus tachycard ia 62068365 Active 2018 Soha median [facility] 5 08:51:23 Hyperchol esterolem ia 49145599 Active 2018 Not Available [facility] 3 18:28:12 Acute non-ST segment elevation myocardia l infarctio n 447925915 Active 2021 Not Available [facility] 3 18:28:12 Anxiety 30715776 Active 2021 Soha medina [facility] 5 08:51:23 Congestiv e heart failure 98471293 Active 2021 Not Available [facility] 3 18:28:12 Type 2 diabetes mellitus without complicat ion 391294750 Active 2022 Soha medina [facility] 5 08:51:23 Bleeding internal hemorrhoi ds 28493171 Active 2023 Soha medina [facility] 5 08:51:23 Heart failure 40034153 Active 2023 Soha medina [facility] 5 08:51:23 Fatigue 24884221 Active 2024 Carlitos Benz, DO [address] [place], [address], [facility] 5 14:33:23 Hypotesto steronism 976171485447 4 Active 2024 Carlitos Benz, DO [address] [place], [address], [facility] 5 22:56:07 Acute cough Active 2024 NAVEED NOEL [address] [place], [address], [facility] 5 09:38:44 Testoster one level below reference range 103630930 Active 2024 NAVEED NOEL [address] [place], [address], [facility] 5 09:40:34 Persisten t cough 986190067 Active 2024 NAVEED NOEL [address] [place], [address], [facility] 5 10:47:37 Problem Notes None recorded. Medical Equipment None Reported. [...] completed Not Available Not Available Not Available prednisone 10 mg tablet TAKE 4 TABS BY MOUTH X2DAYS, THEN 3 TAB X2DAYS, THEN 2 TABS X2DAYS, THEN 1 TAB X2DAYS active Not Available Not Available No t Available carvedilol 12.5 mg tablet TAKE 1 TABLET BY MOUTH TWICE A DAY 05/25 completed Not Available Not Available Not Available citalopram 10 mg tablet TAKE 1 TABLET BY MOUTH EVERY DAY active Not Available Not Available No t Available aspirin 81 mg tablet,angel yed release TAKE 1 TABLET BY MOUTH EVERY DAY active Not Available Not Available No t Available spironolact one 25 mg tablet TAKE 1 TABLET BY MOUTH EVERY DAY active Not Available Not Available No t Available hydrocortis one 2.5 % topical cream with perineal applicator APPLY 1 APPLICATI ON TOPICALLY TWICE A DAY FOR 10 DAYS 11/17 completed Not Available Not Available Not Available lorazepam 0.5 mg tablet TAKE 1 [...] Not Available Not Available No t Available montelukast 10 mg tablet TAKE 1 TABLET BY MOUTH EVERY DAY DIRECTED active Not Available Not Available No t Available albuterol sulfate HFA 90 mcg/actuati on aerosol inhaler INHALE 2 PUFFS INTO THE LUNGS EVERY 4 HOURS NEEDED FOR 30 DAYS active Not Available Not Available No t Available rosuvastati n 5 mg tablet TAKE 1 TABLET BY MOUTH EVERY DAY 02/28 completed Not Available Not Available Not Available rosuvastati n 20 mg tablet TAKE 1 TABLET BY MOUTH EVERY DAY 2024 active Not Available Not Available Not Avai lable ticagrelor 90 mg tablet TAKE 1 TABLET BY MOUTH TWICE A DAY active Not Available Not Available No t Available Farxiga 10 mg tablet TAKE 1 TABLET BY MOUTH EVERY DAY 2024 active Not Available Not Available Not Avai lable aspirin 80 mg tablet Take 1 tablet every day by oral route. 10/28 completed Not Available Not Available Not Available Entresto 49 mg-51 mg tablet TAKE 1 TABLET BY MOUTH TWICE A DAY 2024 active Not Available Not Available Not [...] Updated DateTime 4 187.96 cm 42.6 kg/m2 591207. 67 g 80 /min 97 % 97 % 108 mm[Hg] 60 mm[Hg] Elizabeth Diallo [facility] 4 11:49:52 Date Recorded Body height Body mass index (BMI) Body weight Heart rate Oxygen saturation Oxygen saturation in Arterial blood by Pulse oximetry Systolic blood pressure Diastolic blood pressure Provider Name and Address Organization Details Last Updated DateTime 5 187.96 cm 43.1 kg/m2 912132. 04 g 99 /min 95 % 95 % 118 mm[Hg] 68 mm[Hg] Soha Gómez [facility] 5 14:19:23 Date Recorded Body height Body mass index (BMI) Body weight Heart rate Oxygen saturation Oxygen saturation in Arterial blood by Pulse oximetry Systolic blood pressure Diastolic blood pressure Provider Name and Address Organization Details Last Updated DateTime 5 187.96 cm 42.4 kg/m2 241436. 48 g 67 /min 94 % 94 % 112 mm[Hg] 72 mm[Hg] Soha Gómez [facility] 5 09:31:23 Date Recorded Body weight Heart rate Oxygen saturation Oxygen saturation in Arterial blood by Pulse oximetry Systolic blood pressure Diastolic blood pressure Provider Name and Address Organization Details Last Updated DateTime 3 930768. 48 g 81 /min 99 % 99 % 105 mm[Hg] 71 mm[Hg] Carrie Dayo [facility] 3 14:52:23 Social History Question Answer Notes LastModified by Organizat ion Details LastModified Time Tobacco Smoking Status Never Smoker Not Available [facility] 07/09/2020 03:36:24 What Was The Date Of Your Most Recent Tobacco Screening? 01/31/2025 [email or web address] Information not available 01/31/2025 Sex: Unknown Functional Status Question Answer Note LastModified by Organization D etails LastModified Time Do you or have you ever used any other forms of tobacco or nicotine? No Information not available 03/20/2022 Mental Status None recorded. Family History Nothing Reported. Medical History No medical history recorded. Immunizations Vaccine Type Date Status Note Provider Nam e and Address Organization Details Recorded Time COVID-19, mRNA, LNP-S, PF, 100 mcg/0.5mL dose or 50 mcg/0.25mL dose 09/20/2020 completed Not Available [facility] 3 18:28:12 COVID-19, mRNA, LNP-S, PF, 100 mcg/0.5mL dose or 50 mcg/0.25mL dose 10/18/2020 completed Not Available [facility] 3 18:28:12 Past Encounters Encounter ID Performer Location Encounter Start Date Encounter Closed Date Diagnosis/Indication Diagnosis SNOMED-CT Code Diagnosis ICD10 Code Diagnosis Note [id number] Carlitos Benz [facility] [address] [place] [address] 10/28/2018 09:58:05 10/28/2018 10:51:34 Cardiac arrest 397784209 I46.9 now on defib will have him start on a exercise program and diet and we discussed this for a long period of time will have him recheck Hypertensive disorder 38 701885 I10 here and has been doing ok cont current tx Chronic ki dney disease 275506719 N18.9 is now stable and we will cont to monitor Hypercholesterolemia 136 03211 E78.00 note has stopped atorvastat in on his own bc of pain and discomfort in his legs will rechk and have him try the crestor [id number] Carlitos Benz DO [facility] [address],[place] [address] 11/01/2018 13:44:37 11/01/2018 14:56:58 Cardiac arrest 321708310 I46.9 now on defib will have him start on a exercise program and diet and we discussed this for a long period of time will have him recheck Hypertensive disorder 38 964241 I10 here and has been doing ok cont current tx Postoperat pennie wound infection 55693069 T81.40XD now cleared and no evid of any leak or discharge Hypercholesterolemia 136 92168 E78.00 note has stopped atorvastat in on his own bc of pain and discomfort in his legs will rechk and have him try the crestor [id number] Carlitos Benz [facility] [address],[place] [address] 11/16/2018 14:23:42 11/16/2018 15:58:27 Cardiac arrest 993237827 I46.9 now on defib will have him start on a exercise program and diet and we discussed this for a long period of time will have him recheck Hypertensive disorder 38 841139 I10 here and has been doing ok cont current tx Hypercholesterolemia 136 47350 E78.00 now that legs are better will try taking crestor and will let us know Obstructiv e sleep apnea syndrome 38240625 G47.33 doing well no issues Carlitos Benz DO [facility] [address],[place] [employer] [facility] [address] 01/18/2019 09:20:27 01/18/2019 10:26:14 Hypertensive disorder 04651385 I10 here and has been doing ok cont current tx Hypercholesterolemia 136 07836 E78.00 now that legs are better will try taking crestor and legs are much better and is doing ok Obstructiv e sleep apnea syndrome 67062897 G47.33 doing well no issues he has been using the cpap and has been benefited greatly also the patients cpap machine is broken as its over 4 years old it has a broken knob on top and is unable to adequately move air as it should will need to get a new machine,,, , [id number] Carlitos Benz DO [facility] [address],[place] [employer] [facility] [address] 05/24/2019 09:53:21 05/24/2019 12:12:35 Hypertensive disorder 99506208 I10 here and has been doing ok cont current tx Chronic ki dney disease 433615750 N18.9 is now stable and we will cont to monitor lab ordered for this week will check cmp Obstructiv e sleep apnea syndrome 96271491 G47.33 doing well no issues [id number] Carlitos Benz DO [facility] [address],[place] [employer] [place] [address] 10/13/2019 13:51:33 10/13/2019 14:37:21 Hypertensive disorder 83638241 I10 here and has been doing ok cont current tx Hypercholesterolemia 136 86039 E78.00 now that legs are better will try taking crestor and legs are much better and is doing ok Chronic ki dney disease 462181310 N18.9 is now stable and we will cont to monitor lab ordered for this week will check cmp Obstructiv e sleep apnea syndrome 83469423 G47.33 doing well no issues with new machine Cardiac arrest 788732830 I46.9 now on defib will have him start on a exercise program and diet and we discussed this for a long period of time will have him recheck will be having a defib check this december Carlitos Benz DO [facility] [address],[place] [address] 11/22/2020 09:27:16 11/22/2020 11:11:30 Hypertensive disorder 52742446 I10 here and has been doing ok cont current tx Hypercholesterolemia 136 07495 E78.00 now that legs are better will try taking crestor and legs are much better and is doing ok Obstructiv e sleep apnea syndrome 58485519 G47.33 doing well no issues with new machine still doing well [id number] Carlitos Benz DO [facility] [address],[place] [address] 05/16/2021 10:11:57 05/16/2021 10:58:48 Cardiac arrest 445682764 I46.9 now on defib will have him start on a exercise program and diet and we discussed this for a long period of time will have him recheck will be having a defib check this december Hypertensive disorder 38 364707 I10 here and has been doing ok but we noticed he is running borderline will have him get a new cuff at home and start recording his levelwell see him back in a couple mocont current tx Obstructiv e sleep apnea syndrome 97566707 G47.33 doing well no issues with new machine still doing well Chronic ki dney disease 849704637 N18.9 is now stable and we will cont to monitor lab ordered for this week will check cmp and repeat this today [id number] Carlitos Benz DO [facility] [address],[place] [address] [address] 10/07/2021 08:36:00 10/08/2021 08:40:42 Cardiac arrest 171495794 I46.9 now on defib will have him start on a exercise program and diet and we discussed this for a long period of time will have him recheck will be having a defib check this december Chronic ki dney disease 592225658 N18.9 is now stable and we will cont to monitor lab ordered for this week will check cmp and repeat this today Hypertensive disorder 38 331596 I10 here and has been doing ok but we noticed he is running borderline will have him get a new cuff at home and start recording his levelwell see him back in a couple mocont current tx Obstructiv e sleep apnea syndrome 00553015 G47.33 doing well no issues with new machine still doing well Hypercholesterolemia 136 46002 E78.00 now that legs are better will try taking crestor and legs are much better and is doing ok Impaired f asting glycemia 624358923 R73.01 [id number] Carlitos Benz [facility] Internal Medicine [address],[place] [address] 01/02/2022 14:55:06 01/02/2022 16:34:08 Active or passive immunization 008992325 Z23 ADVISED PATIENT HE IS DUE FOR Tdap Acute non- ST segment elevation myocardial infarction 324037214 I21.4 long detailed discussion we will discuss casewith cardiology we will have him cont current tx Anxiety 88939400 F41.9 [id number] Carlitos Benz [facility] Internal Medicine [address],[place] [address] 01/12/2022 12:00:20 01/12/2022 14:37:22 Acute non-ST segment elevation myocardial infarction 240989646 I21.4 long detailed discussion we will have him cont current tx Hypertensive disorder 38 802258 I10 bp is running excellent and he has had some mild dizziness when getting up quickwill have him get a new cuff at home and start recording his levelwell see him back in a couple mocont current tx Obstructiv e sleep apnea syndrome 82159104 G47.33 doing well no issues with new machine still doing well [id number] Carlitos Benz [facility] Internal Medicine [address],[place] [address] 03/20/2022 10:33:40 03/20/2022 11:45:34 Hypertensive disorder 55110385 I10 bp is running excellent and he has had some mild dizziness when getting up quickwill have him get a new cuff at home and start recording his levelwell see him back in a couple mocont current tx Chronic ki dney disease 534930132 N18.9 is now stable and we will cont to monitor lab ordered for this week will check cmp and repeat this today Hypercholesterolemia 136 43168 E78.00 now that legs are better will try taking crestor and legs are much better and is doing ok Acute non- ST segment elevation myocardial infarction 916641879 I21.4 long detailed discussion we will have him cont current tx Active or passive immunization 715980491 Z23 patient advised he is due for tdap Congestive heart failure 26467583 I50.9 stable and is tolerating meds and increased doses and this is controlled by cardiologi stshas an mri of heart scheduled [id number] Carlitos Benz [facility] Internal Medicine [address],[place] [address] 05/25/2022 10:55:48 05/25/2022 13:11:24 Acute non-ST segment elevation myocardial infarction 950236089 I21.4 long detailed discussion we will have him cont current tx Anxiety 50005459 F41.9 stable Congestive heart failure 20109692 I50.9 stable and is tolerating meds and increased doses and this is controlled by cardiologi stshas an mri of heart scheduled Hypertensive disorder 38 955317 I10 bp is running excellent and he has had some mild dizziness when getting up quickwill have him get a new cuff at home and start recording his levelwell [place] [id number] Carlitos Benz [facility] Internal Medicine [address],[place] [address] 07/06/2023 14:47:28 07/06/2023 15:30:12 Hypercholesterolemia 18174829 E78.00 now that legs are better will try taking crestor and legs are much better and is doing ok Congestive heart failure 27306466 I50.9 stable and is tolerating meds and increased doses and this is controlled by cardiologi stshas an mri of heart scheduled Chronic ki dney disease 011556914 N18.9 is now stable and we will cont to monitor lab ordered for this week will check cmp and repeat this today Type 2 rach betes mellitus without complication 408016320 E11.9 trying to be careful has gained wgt again over the such and his struggles i feel he is an ideal candidate for mounjaro will try to get [id number] Carlitos Benz [facility] Medicine [address],[place] [address] 09/14/2023 11:38:49 09/15/2023 08:16:27 Bleeding internal hemorrhoids 66214842 K64.8 will use intra rectal cream [id number] Carlitos Benz [facility] Internal Medicine [address],[place] [address] 09/29/2023 09:12:12 09/29/2023 15:19:35 Type 2 diabetes mellitus without complication 593264920 E11.9 trying to be careful has gained wgt again over the n such and his struggles i feel he is an ideal candidate for mounjaro will try to get Cardiac arrest 536807304 I46.9 now on defib will have him start on a exercise program and diet and we discussed this for a long period of time will have him recheck will be having a defib check this december Heart failure 35230678 I 50.9 stable no issues Obstructiv e sleep apnea syndrome 50520042 G47.33 doing well no issues with new machine still doing well [id number] Carlitos Benz [facility] Medicine [address],[place] [address] 11/17/2024 14:06:43 11/17/2024 14:38:08 Depression screening 325049700 Z13.31 neg Hypertensive disorder 38 560509 I10 bp is running excellent and he has had some mild dizziness when getting up quickwill have him get a new cuff at home and start recording his levelwell see him back in a couple mocont current tx Congestive heart failure 77701736 I50.9 stable and is tolerating meds and increased doses and this is controlled by cardiologi stshas an mri of heart scheduled Chronic ki dney disease 552013157 N18.9 is now stable and we will cont to monitor lab ordered for this week will check cmp and repeat this today Type 2 rach betes mellitus without complication 432557568 E11.9 trying to be careful a1c is 6.0 Fatigue 48926829 R53.83 [id number] Carlitos Benz DO [facility] [address],[place] [address] 01/31/2025 09:06:32 01/31/2025 10:05:51 Acute cough 5296959045 54426579 R05.1 will set up with Testostero ne level below reference range 345165881 R79.89 set up with repeat test for patient per Health Concerns Section Related Observation LastModified by Organization Detai ls LastModified Time None Recorded Concern Status LastModified by Organization Details LastModified Time None Recorded Advance Directives Directive None Recorded Payers Insurance Date Sequence Insurance Name Policy Number Policy Linda Covered Member ID Linda Member ID Guarantor Name 02/18/[address] [place] [address] [id number] Dav Archer [id number] Dav Archer Notes Date Note Type Note Provider Name and Address Organization Details Recorded Time 3 text/htm l here for rechk and is doing okremains stable overall and is still working Carlitos Benz DO [address] [place], [address], [facility] 07/06/2023 15:20:55 4 text/htm l patient is evaluated via tele/video assessment per patient consentduring current pandemicappt for discussion of trouble with hemorrhoidsrelates that had a hard bm 2 weeks ago with a lot of bloodhaving a annoying rectal pain since thenno further bleedingrelates tried otc rectal creams Carlitos Benz DO [address] [place], [address], [facility] 09/14/2023 12:01:08 4 text/htm l patient is evaluated via tele/video assessment per patient consentduring current pandemic states that his rectal bleeding and pain has now stoppedfeels goodno major issues\no cp nos sob bowels normal now Carlitos Benz DO [address] [place], [id number], [facility] 09/29/2023 15:13:28 5 text/htm l Care Management - Congestive Heart Failure (CHF)Reported bypatient.Self Care:not under emotional stress; no recent hospitalization Severity:symptoms are improving; does not interfere with daily activities Associated Symptoms:no chest pain; normal heartbeat; no chest tightness; no constant coughing; no blood from coughs; no shortness of breath; no fatigue; no limb swelling; no abdominal swelling; no appetite lossCare Management - DiabetesReported bypatient.Self Care:seeing eye doctor yearly for dilated eye exam; checking feet regularly; normal range of home blood sugars (in the low 100s); no side effects from medications Associated Symptoms:symptoms are usually well controlled; no fatigue; no dizziness; no excessive sweating; no headaches; no confusion; no increased thirst; no increased appetite; no increased urination; no blurred vision; no numbness of feet; no calluses on feetCare Management - HypertensionReported bypatient.Self Care:not under emotional stress Severity:symptoms are improving; does not interfere with daily activities Associated Symptoms:no dizziness; no lightheadedness; no chest pain; no shortness of breath; no palpitations; no edema; no calf muscle cramps; no blurred vision; no confusion; no headaches; no fatigue doing ok feeling sluggish cpap is older Carlitos Benz, DO [address] [place], [id number], [facility] 11/17/2024 14:35:38 5 text/htm l c/o two weeks with cough the patient reports that he has been having dry cough x 2 weeksworse at night when he is laying flatthe patient reports that he did have a cold two weeks ago with fever, chills, cough x 3 days, cough has since persistedthe patient denies any other symptoms today, no chest pain, no sob, no chest congestion, no chest tightnessthe patient is fine sleeping, does not cough during the nightdoes cough a little more after waking in the morningfeels like he can't get anything out of the lungs recommended continuing mucinex and starting a steroid taper the patient needs fu with T recheck per MBgiven lab sheet NAVEED NOEL [address] [place] [address], [place], [id number], [facility] 01/31/2025 09:43:47
== END 2025-02-28 13:58 | disposition home or self-care (01) ==
PROVIDERS: Registered Nurse Emergency; Emergency Provider Emergency Medicine; PCP Internal Medicine
DX: K57.32 Diverticulitis of large intestine without perforation or abscess without bleeding (principal); R05.9 Cough, unspecified; R10.32 Left lower quadrant pain; R10.2 Pelvic and perineal pain; Z79.899 Other long term (current) drug therapy
CPT/HCPCS: 36415; 71046; 74177; 80053; 81001; 81003; 85025; 99284; Q9967

== ENCOUNTER → 2025-02-28 10:51 | Outpatient (BNV) | payer OTHER, SELFPAY ==
[2022-05-27 12:27] VITALS: BP 104/66; BP 98/60; BMI 38.9
== END ==
PROVIDERS: Emergency Provider Emergency Medicine; PCP Internal Medicine; Visit Provider Radiology Diagnostic Radiology
DX: K57.32 Diverticulitis of large intestine without perforation or abscess without bleeding (principal); R05.3 Chronic cough
CPT/HCPCS: 71046; 74177